=== PATIENT | female | born 1955 | race Caucasian/White ===

== ENCOUNTER 2021-07-10 12:04 | Inpatient (IN) | payer MEDICARE, BC ==
[2021-07-10] MEDS ORDERED: Sodium Chloride 0.9% 1,000 ML IV SCH (12:45)
[2021-07-10] MEDS ORDERED: Morphine 4 MG/ML VIAL IVPUSH STA (13:13)
[2021-07-10] MEDS ORDERED: cefTRIAXone 2 GM Vial IVPUSH STA (13:45)
[2021-07-10] MEDS ORDERED: Ondansetron 4 MG/2 ML SDV IVPUSH STA (13:45)
[2021-07-10] MEDS ORDERED: Iopamidol 755 Mg/ML 100 ML Bottle IV ONE (13:58)
--- NOTE | 2021-07-10 14:14 | EDM.PDOC ---
ED HPI GENERAL MEDICAL PROBLEM - General Chief Complaint: Lower Extremity Injury/Pain Stated Complaint: LEG PAIN Time Seen by Provider: 07/10/21 12:35 Source of Information: Reports: Patient History Limitations: Reports: No Limitations - History of Present Illness INITIAL COMMENTS - FREE TEXT/NARRATIVE: Patient is a 65 YO WF who presented to the ED because of right thigh pain and generalized body weakness. She had a total hip replacement surgery due to OA at [facility] on 07/02/21. 3 days after the surgery she had decreased appetite an has not been eating well since then. She also c/o generalized body weakness which is worse on the RLE. 4 days post op she had nausea but no vomiting or diarrhea. She had chills but afebrile. Today she noticed redness posterior to the incision site. - Related Data Allergies Allergy/AdvReac Type Severity Reaction Status Date / Time Penicillins Allergy Rash Verified 06/28/14 10:51 Home Meds: Home Meds Atenolol [Tenormin] 150 mg PO DAILY 06/16/13 [History] Bimatoprost [LUMIGAN 0.01% Ophth Soln] 1 drop EYEBOTH BEDTIME 06/16/13 [History] Carboxymethylcellulos/Glycerin [Refresh Optive] 1 drop EYELF BID PRN 06/16/13 [History] Insulin Lispro [Humalog Kwikpen U-100] 36 units SQ TIDM 06/16/13 [History] Losartan/Hydrochlorothiazide [Hyzaar 100-25] 1 tab PO DAILY 06/16/13 [History] Omeprazole [Prilosec] 40 mg PO DAILY 06/16/13 [History] cycloSPORINE [Restasis] 1 each EYEBOTH BID 06/16/13 [History] Alosetron HCl [Lotronex] 0.5 mg PO BID PRN 07/10/21 [History] Ascorbic Acid [Vitamin C with Pamela Hips] 500 mg PO DAILY 07/10/21 [History] Aspirin [Aspirin EC] 325 mg PO DAILY 07/10/21 [History] Carboxymethylcell/Hypromellose [GenTeal 0.25-0.3% Gel Drops] 1 drop EYEBOTH BEDTIME 07/10/21 [History] Cholecalciferol (Vitamin D3) [Vitamin D3] 1,000 unit PO DAILY 07/10/21 [History] Diltiazem [Diltiazem XR] 240 mg PO DAILY 07/10/21 [History] Dulaglutide [Trulicity] 3 mg SQ WE 07/10/21 [History] Gabapentin [Neurontin] 300 mg PO BID 07/10/21 [History] Insulin Degludec [Tresiba] 50 unit SQ BEDTIME 07/10/21 [History] Nystatin [Nyamyc] 1 applic TP BID PRN 07/10/21 [History] Rosuvastatin [Crestor] 5 mg PO BEDTIME 07/10/21 [History] Terbinafine [LamISIL AT 1% Crm] 1 applic BID PRN 07/10/21 [History] Zinc 25 mg PO DAILY 07/10/21 [History] metFORMIN [Glucophage] 500 mg PO 1800 07/10/21 [History] oxyCODONE 5 mg PO Q4H PRN 07/10/21 [History] traZODone 50 mg PO BEDTIME 07/10/21 [History] Acetaminophen [Acetaminophen ER] 650 mg PO Q8H PRN 07/11/21 [History] Aspirin [Halfprin] 81 mg PO BEDTIME 07/11/21 [History] Clobetasol [Clobetasol 0.05%] 1 applic TOP Q72H PRN 07/11/21 [History] Lutein 20 mg PO DAILY 07/11/21 [History] Multivitamins [Tab-A-Sherman] 1 tab PO DAILY 07/11/21 [History] estradioL [Estrace 0.01% Vaginal Crm] 1 g VAG WEEKLY PRN 07/11/21 [History] metFORMIN [Glucophage] 1,000 mg PO DAILY 07/11/21 [History] Review of Systems - Review of Systems Review Of Systems: See Below Constitutional: Reports: Chills, Weakness Eyes: Reports: No Symptoms Ears: Reports: No Symptoms Nose: Reports: No Symptoms Mouth/Throat: Reports: No Symptoms Respiratory: Reports: No Symptoms Cardiovascular: Reports: No Symptoms GI/Abdominal: Reports: No Symptoms Genitourinary: Reports: No Symptoms Musculoskeletal: Reports: No Symptoms Skin: Reports: Erythema Neurological: Reports: No Symptoms Psychiatric: Reports: No Symptoms ED EXAM, GENERAL - Physical Exam Exam: See Below Exam Limited By: No Limitations General Appearance: Alert, No Apparent Distress Eye Exam: Bilateral Eye: PERRL Nose: Normal Inspection, Normal Mucosa, No Blood Throat/Mouth: Normal Inspection, Normal Lips, Normal Teeth, Normal Gums Head: Atraumatic, Normocephalic Neck: Normal Inspection, Supple, Non-Tender, Full Range of Motion Respiratory/Chest: No Respiratory Distress, Lungs Clear, Normal Breath Sounds, No Accessory Muscle Use, Chest Non-Tender Cardiovascular: Normal Peripheral Pulses, Regular Rate, Rhythm, No Edema, No Gallop, No JVD, No Murmur, No Rub GI/Abdominal: Normal Bowel Sounds, Soft, Non-Tender, No Organomegaly, No Distention, No Abnormal Bruit, No Mass Back Exam: Normal Inspection, Full Range of Motion Extremities: Normal Inspection, Normal Range of Motion, Non-Tender, No Pedal Edema, Normal Capillary Refill Neurological: Alert, Oriented, CN II-XII Intact Psychiatric: Normal Affect Skin Exam: Erythema (posterior to the incision site) #1 Interpretation EKG Date: 07/10/21 Time: 12:42 Rhythm: NSR Rate (Beats/Min): 72 [place]: Normal P-Wave: Present QRS: Normal ST-T: Normal QT: Normal TX/PQ Interval: 194 Comparison: NA - No Prior EKG EKG Interpretation Comments: NSR LAE LVH Course - Vital Signs Text/Narrative:: Lab/EKG/CXR/CTA-chest result was reviewed and discussed with patient NS 500 ml/hr X 1 L Zofran 4 mg IV x1 Morphine 4 mg IV x1 Rocephin 1 gm IV x1 Last Recorded V/S: Last Vital Signs Temp 37.7 C 07/10/21 18:01 Pulse 78 07/10/21 18:01 Resp 16 07/10/21 18:01 BP 95/55 L 07/10/21 18:01 Pulse Ox 97 07/10/21 18:01 - Orders/Labs/Meds Orders: Active Orders 24 hr Category Date Time Status Patient Status [ADT] Routine ADT 07/10/21 16:31 Active Blood Glucose Check, Bedside [RC] 07,11,17,21 Care 07/10/21 16:31 Active Oxygen Therapy [RC] PRN Care 07/10/21 16:31 Active Pulse Oximetry [RC] PRN Care 07/10/21 16:34 Active Up With Assistance [RC] ASDIRECTED Care 07/10/21 16:31 Active VTE/DVT Education [RC] Per Unit Routine Care 07/10/21 16:31 Active Vital Signs [RC] Q4H Care 07/10/21 16:31 Active Heart Healthy Diet [DIET] Diet 07/10/21 Dinner Ordered CULTURE BLOOD [BC] Urgent Lab 07/10/21 14:35 Received CULTURE BLOOD [BC] Urgent Lab 07/10/21 16:00 Received Acetaminophen/oxyCODONE [Percocet 325-5 MG] Med 07/10/21 16:31 Active 1 tab PO Q4H PRN Acetaminophen/oxyCODONE [Percocet 325-5 MG] Med 07/10/21 16:59 Active 2 tab PO Q4H PRN Docusate Sodium/Sennosides [Senna Plus] Med 07/10/21 16:31 Active 1 tab PO BID PRN Enoxaparin [Lovenox] Med 07/10/21 21:00 Active 40 mg SUBCUT Q24H Morphine Med 07/10/21 16:31 Active 4 mg IVPUSH Q2H PRN Ondansetron [Zofran] Med 07/10/21 16:31 Active 4 mg IVPUSH Q4H PRN Sodium Chloride 0.9% [Saline Flush] Med 07/10/21 12:26 Active 10 ml FLUSH ASDIRECTED PRN cefTRIAXone [Rocephin] Med 07/10/21 14:00 Active 1 gm IVPUSH Q24H Blood Culture x2 Reflex Set [OM.PC] Urgent Oth 07/10/21 12:26 Ordered Isolation [COMM] Routine Oth 07/10/21 14:00 Ordered Saline Lock Insert [OM.PC] Routine Oth 07/10/21 12:26 Ordered Sequential Compression Device [OM.PC] Per Unit Routine Oth 07/10/21 16:34 Ordered Resuscitation Status Routine Resus Stat 07/10/21 16:31 Ordered EKG 12 Lead [EK] Routine Ther 07/10/21 12:29 Ordered Medication Orders Acetaminophen (Acetaminophen 650 Mg Tab.Er) 650 mg PO Q8H PRN PRN Reason: Pain Ascorbic Acid (Ascorbic Acid 500 Mg Tab) 500 mg PO DAILY [facility] Last Admin: 07/11/21 10:15 Dose: 500 mg Documented by: INGRID Aspirin (Aspirin 325 Mg Tab.Ec) 325 mg PO DAILY [facility] Last Admin: 07/11/21 10:15 Dose: 325 mg Documented by: INGRID Carboxymethylcellulose (Carboxymethylcellulose 0.5%/Glycerin 0.9% Ophth Soln 15 Ml Bottle) 0 ml EYELF BID [facility] Last Admin: 07/11/21 08:43 Dose: 1 drop Documented by: Admin: 07/10/21 22:21 Dose: 1 drop Documented by: SCOTT Ceftriaxone Sodium (Ceftriaxone 1 Gm Vial) 1 gm IVPUSH Q24H [facility] Last Admin: 07/10/21 22:17 Dose: Not Given Documented by: IVAN Cholecalciferol (Cholecalciferol (Vitamin D3) 25 Mcg Tab) 25 mcg PO DAILY [facility] Last Admin: 07/11/21 10:16 Dose: 25 mcg Documented by: INGRID Dextrose/Water (50% Dextrose In Water 50 Ml Syringe) 50 ml IVPUSH ASDIRECTED PRN PRN Reason: Hypoglycemia Enoxaparin Sodium (Enoxaparin 40 Mg/0.4 Ml Syringe) 40 mg SUBCUT Q24H [facility] Last Admin: 07/10/21 21:30 Dose: 40 mg Documented by: SCOTT Gabapentin (Gabapentin 300 Mg Cap) 300 mg PO BID [facility] Last Admin: 07/11/21 10:18 Dose: 300 mg Documented by: INGRID Glucagon (Glucagon,Human Recombinant 1 Mg Vial) 1 mg IM ASDIRECTED PRN PRN Reason: Hypoglycemia Sodium Chloride (Normal Saline) 1,000 mls @ 150 mls/hr IV ASDIRECTED [facility] Last Admin: 07/11/21 09:33 Dose: 150 mls/hr Documented by: Infusion: 07/11/21 09:33 Dose: 150 mls/hr Documented by: Admin: 07/11/21 05:58 Dose: 150 mls/hr Documented by: Infusion: 07/11/21 05:53 Dose: 150 mls/hr Documented by: Admin: 07/10/21 23:12 Dose: 150 mls/hr Documented by: Infusion: 07/10/21 22:21 Dose: 150 mls/hr Documented by: Admin: 07/10/21 15:40 Dose: 150 mls/hr Documented by: IVAN Sodium Chloride (Normal Saline) 250 mls @ 100 mls/hr IV ASDIRECTED [facility] Vancomycin HCl (Vancomycin 1.5 Gm/300 Ml) 300 mls @ 200 mls/hr IV Q12H [facility]ERVAT Insulin Human Lispro (Insulin Lispro 100 Unit/Ml 3 Ml Kwikpen) 0 unit SUBCUT TIDMEALS [facility]; Protocol Last Admin: 07/11/21 11:37 Dose: 4 units Documented by: INGRID Cosigned by: JD Latanoprost (Latanoprost 0.005% Ophth Soln 2.5 Ml Bottle) 0 ml EYEBOTH BEDTIME [facility] Last Admin: 07/10/21 21:30 Dose: 1 drop Documented by: SCOTT Lutein (Lutein 10 Mg Tab) 20 mg PO DAILY [facility] Last Admin: 07/11/21 10:15 Dose: 20 mg Documented by: INGRID Metformin HCl (Metformin 1,000 Mg Tab) 1,000 mg PO WITHBREAKFAST [facility] Metformin HCl (Metformin 500 Mg Tab) 500 mg PO WITHDINNER [facility] Morphine Sulfate (Morphine 4 Mg/Ml Vial) 4 mg IVPUSH Q2H PRN PRN Reason: Pain Multivitamins/Minerals/Vitamin C (Multivitamin Tab) 1 tab PO DAILY [facility] Last Admin: 07/11/21 10:15 Dose: 1 tab Documented by: INGRID Non-Formulary Medication (Insulin Degludec [Tresiba]) 50 unit SQ BEDTIME [facility] Nystatin (Nystatin Topical Powder 15 Gm Bottle) 0 gm TOP BID PRN PRN Reason: Rash Ondansetron HCl (Ondansetron 4 Mg/2 Ml Sdv) 4 mg IVPUSH Q4H PRN PRN Reason: Nausea/Vomiting Oxycodone/Acetaminophen (Acetaminophen/Oxycodone 325-5 Mg Tab) 1 tab PO Q4H PRN PRN Reason: Pain (moderate 4-6) Last Admin: 07/11/21 06:03 Dose: 1 tab Documented by: SCOTT Oxycodone/Acetaminophen (Acetaminophen/Oxycodone 325-5 Mg Tab) 2 tab PO Q4H PRN PRN Reason: SEVERE PAIN Last Admin: 07/10/21 21:55 Dose: 2 tab Documented by: SCOTT Pantoprazole Sodium (Pantoprazole 40 Mg Tab.Cr) 40 mg PO ACBREAKFAST [facility] Last Admin: 07/11/21 06:55 Dose: 40 mg Documented by: BOSHCAT Rosuvastatin Calcium (Rosuvastatin 10 Mg Tab) 5 mg PO BEDTIME [facility] Senna/Docusate Sodium (Docusate Sodium/Sennosides 50-8.6 Mg Tab) 1 tab PO BID PRN PRN Reason: Constipation Sodium Chloride (Sodium Chloride 0.9% 10 Ml Syringe) 10 ml FLUSH ASDIRECTED PRN PRN Reason: Keep Vein Open Trazodone HCl (Trazodone 50 Mg Tab) 50 mg PO BEDTIME [facility] Vancomycin HCl (Pharmacy To Dose - Vancomycin) 1 dose .XX ASDIRECTED [facility] Labs: Laboratory Tests 07/10/21 07/10/21 07/10/21 Range/Units 12:30 12:30 12:30 WBC 15.3 H (3.0-10.3) x10-3/uL RBC 2.92 L (3.60-5.20) x10(6)uL Hgb 8.6 L (11.4-15.5) g/dL Hct 26.0 L (34.2-48.2) % MCV 89.0 (76.7-100.5) fL MCH 29.3 (23.9-33.9) pg MCHC 33.0 (31.9-34.8) g/dL RDW 12.7 (12.3-16.5) % Plt Count 584 H (151-488) x10(3)uL MPV 8.0 (7.1-12.4) fL Neut % (Auto) 86.7 H (30.8-76.2) % Lymph % (Auto) 6.7 L (18.4-52.1) % Harrison % (Auto) 5.6 (4.4-15.7) % Eos % (Auto) 0.9 (0.6-8.1) % Baso % (Auto) 0.1 L (0.2-1.5) % Neut # (Auto) 13.2 H (1.5-6.3) x10-3/uL Lymph # (Auto) 1.0 (1.0-4.4) x10-3/uL Harrison # (Auto) 0.9 (0.3-1.0) x10-3/uL Eos # (Auto) 0.1 (0.0-0.8) x10-3/uL Baso # (Auto) 0.0 (0.0-0.1) x10-3/uL D-Dimer, Quantitative 2.41 H (0.0-0.59) mg/LFEU Sodium 128 L (135-145) mmol/L Potassium 3.3 L (3.5-5.3) mmol/L Chloride 90 L (100-110) mmol/L Carbon Dioxide 32 (21-32) mmol/L BUN 20 H (7-18) mg/dL Creatinine 1.2 H (0.55-1.02) mg/dL Est Cr Clr Drug Dosing TNP Estimated GFR (MDRD) 45 L (>60) BUN/Creatinine Ratio 16.7 (9-20) Glucose 278 H (80-116) mg/dL Lactic Acid (0.4-2.0) mmol/L Calcium 8.9 (8.6-10.2) mg/dL Total Bilirubin 0.9 (0.1-1.3) mg/dL AST 23 (5-25) IU/L ALT 21 (12-36) U/L Alkaline Phosphatase 102 (56-112) IU/L C-Reactive Protein (0.5-0.9) mg/dL Total Protein 6.0 (6.0-8.0) g/dL Albumin 2.0 L (3.2-4.6) g/dL Globulin 4.0 g/dL Albumin/Globulin Ratio 0.5 Urine Color (YELLOW) Urine Appearance (CLEAR) Urine pH (5.0-6.5) Ur Specific [place] (1.010-1.025) Urine Protein (NEGATIVE) mg/dL Urine Glucose (UA) (NORMAL) mg/dL Urine Ketones (NEGATIVE) mg/dL Urine Occult Blood (NEGATIVE) Urine Nitrite (NEGATIVE) Urine Bilirubin (NEGATIVE) Urine Urobilinogen (NEGATIVE) mg/dL Ur Leukocyte Esterase (NEGATIVE) Urine RBC (0-5) Urine WBC (0-5) Ur Squamous Epith Cells (NS,R,O) Urine Bacteria (NS) SARS-CoV-2 RNA (SEBASTIAN) (NEGATIVE) 07/10/21 07/10/21 07/10/21 Range/Units 12:30 12:30 12:31 WBC (3.0-10.3) x10-3/uL RBC (3.60-5.20) x10(6)uL Hgb (11.4-15.5) g/dL Hct (34.2-48.2) % MCV (76.7-100.5) fL MCH (23.9-33.9) pg MCHC (31.9-34.8) g/dL RDW (12.3-16.5) % Plt Count (151-488) x10(3)uL MPV (7.1-12.4) fL Neut % (Auto) (30.8-76.2) % Lymph % (Auto) (18.4-52.1) % Harrison % (Auto) (4.4-15.7) % Eos % (Auto) (0.6-8.1) % Baso % (Auto) (0.2-1.5) % Neut # (Auto) (1.5-6.3) x10-3/uL Lymph # (Auto) (1.0-4.4) x10-3/uL Harrison # (Auto) (0.3-1.0) x10-3/uL Eos # (Auto) (0.0-0.8) x10-3/uL Baso # (Auto) (0.0-0.1) x10-3/uL D-Dimer, Quantitative (0.0-0.59) mg/LFEU Sodium (135-145) mmol/L Potassium (3.5-5.3) mmol/L Chloride (100-110) mmol/L Carbon Dioxide (21-32) mmol/L BUN (7-18) mg/dL Creatinine (0.55-1.02) mg/dL Est Cr Clr Drug Dosing Estimated GFR (MDRD) (>60) BUN/Creatinine Ratio (9-20) Glucose (80-116) mg/dL Lactic Acid 2.6 H* (0.4-2.0) mmol/L Calcium (8.6-10.2) mg/dL Total Bilirubin (0.1-1.3) mg/dL AST (5-25) IU/L ALT (12-36) U/L Alkaline Phosphatase (56-112) IU/L C-Reactive Protein 24.8 H* (0.5-0.9) mg/dL Total Protein (6.0-8.0) g/dL Albumin (3.2-4.6) g/dL Globulin g/dL Albumin/Globulin Ratio Urine Color (YELLOW) Urine Appearance (CLEAR) Urine pH (5.0-6.5) Ur Specific [place] (1.010-1.025) Urine Protein (NEGATIVE) mg/dL Urine Glucose (UA) (NORMAL) mg/dL Urine Ketones (NEGATIVE) mg/dL Urine Occult Blood (NEGATIVE) Urine Nitrite (NEGATIVE) Urine Bilirubin (NEGATIVE) Urine Urobilinogen (NEGATIVE) mg/dL Ur Leukocyte Esterase (NEGATIVE) Urine RBC (0-5) Urine WBC (0-5) Ur Squamous Epith Cells (NS,R,O) Urine Bacteria (NS) SARS-CoV-2 RNA (SEBASTIAN) Negative (NEGATIVE) 07/10/21 07/10/21 Range/Units 15:00 16:00 WBC (3.0-10.3) x10-3/uL RBC (3.60-5.20) x10(6)uL Hgb (11.4-15.5) g/dL Hct (34.2-48.2) % MCV (76.7-100.5) fL MCH (23.9-33.9) pg MCHC (31.9-34.8) g/dL RDW (12.3-16.5) % Plt Count (151-488) x10(3)uL MPV (7.1-12.4) fL Neut % (Auto) (30.8-76.2) % Lymph % (Auto) (18.4-52.1) % [place] % (Auto) (4.4-15.7) % Eos % (Auto) (0.6-8.1) % Baso % (Auto) (0.2-1.5) % Neut # (Auto) (1.5-6.3) x10-3/uL Lymph # (Auto) (1.0-4.4) x10-3/uL Harrison # (Auto) (0.3-1.0) x10-3/uL Eos # (Auto) (0.0-0.8) x10-3/uL Baso # (Auto) (0.0-0.1) x10-3/uL D-Dimer, Quantitative (0.0-0.59) mg/LFEU Sodium (135-145) mmol/L Potassium (3.5-5.3) mmol/L Chloride (100-110) mmol/L Carbon Dioxide (21-32) mmol/L BUN (7-18) mg/dL Creatinine (0.55-1.02) mg/dL Est Cr Clr Drug Dosing Estimated GFR (MDRD) (>60) BUN/Creatinine Ratio (9-20) Glucose (80-116) mg/dL Lactic Acid 1.6 (0.4-2.0) mmol/L Calcium (8.6-10.2) mg/dL Total Bilirubin (0.1-1.3) mg/dL AST (5-25) IU/L ALT (12-36) U/L Alkaline Phosphatase (56-112) IU/L C-Reactive Protein (0.5-0.9) mg/dL Total Protein (6.0-8.0) g/dL Albumin (3.2-4.6) g/dL Globulin g/dL Albumin/Globulin Ratio Urine Color Yellow (YELLOW) Urine Appearance Slightly cloudy (CLEAR) Urine pH 5.0 (5.0-6.5) Ur Specific [place] 1.010 (1.010-1.025) Urine Protein Negative (NEGATIVE) mg/dL Urine Glucose (UA) Normal (NORMAL) mg/dL Urine Ketones Negative (NEGATIVE) mg/dL Urine Occult Blood Negative (NEGATIVE) Urine Nitrite Negative (NEGATIVE) Urine Bilirubin Negative (NEGATIVE) Urine Urobilinogen 1 H (NEGATIVE) mg/dL Ur Leukocyte Esterase Negative (NEGATIVE) Urine RBC 0-5 (0-5) Urine WBC 0-5 (0-5) Ur Squamous Epith Cells Moderate H (NS,R,O) Urine Bacteria Moderate H (NS) SARS-CoV-2 RNA (SEBASTIAN) (NEGATIVE) Meds: Medications Generic Name Dose Route Start Last Admin Trade Name Freq PRN Reason Stop Dose Admin Acetaminophen 650 mg 07/11/21 08:58 Acetaminophen 650 Mg Tab.Er PO Q8H PRN Pain Ascorbic Acid 500 mg 07/11/21 09:00 07/11/21 10:15 Ascorbic Acid 500 Mg Tab PO 500 mg DAILY MERVAT Administration Aspirin 325 mg 07/11/21 09:00 07/11/21 10:15 Aspirin 325 Mg Tab.Ec PO 325 mg DAILY MERVAT Administration Carboxymethylcellulose 0 ml 07/10/21 21:00 07/11/21 08:43 Carboxymethylcellulose 0.5%/Glycerin 0.9% Ophth Soln 15 Ml Bottle EYELF 1 d rop BID MERVAT Administration Ceftriaxone Sodium 1 gm 07/10/21 14:00 07/10/21 22:17 Ceftriaxone 1 Gm Vial IVPUSH Not Given Q24H MERVAT Cholecalciferol 25 mcg 07/11/21 09:30 07/11/21 10:16 Cholecalciferol (Vitamin D3) 25 Mcg Tab PO 25 mcg DAILY MERVAT Administration Dextrose/Water 50 ml 07/10/21 17:26 50% Dextrose In Water 50 Ml Syringe IVPUSH ASDIRECTED PRN Hypoglycemia Enoxaparin Sodium 40 mg 07/10/21 21:00 07/10/21 21:30 Enoxaparin 40 Mg/0.4 Ml Syringe SUBCUT 40 mg Q24H MERVAT Administration Gabapentin 300 mg 07/11/21 09:00 07/11/21 10:18 Gabapentin 300 Mg Cap PO 300 mg BID MERVAT Administration Glucagon 1 mg 07/10/21 17:26 Glucagon,Human Recombinant 1 Mg Vial IM ASDIRECTED PRN Hypoglycemia Sodium Chloride 1,000 mls @ 150 mls/hr 07/10/21 22:15 07/11/21 09:33 Normal Saline IV 150 mls/hr ASDIRECTED MERVAT Administration Sodium Chloride 250 mls @ 100 mls/hr 07/11/21 09:00 Normal Saline IV ASDIRECTED MERVAT Vancomycin HCl 300 mls @ 200 mls/hr 07/11/21 21:00 Vancomycin 1.5 Gm/300 Ml IV Q12H MERVAT Insulin Human Lispro 0 unit 07/11/21 12:00 07/11/21 11:37 Insulin Lispro 100 Unit/Ml 3 Ml Kwikpen SUBCUT 4 units TIDMEALS MERVAT Administration Protocol Latanoprost 0 ml 07/10/21 21:00 07/10/21 21:30 Latanoprost 0.005% Ophth Soln 2.5 Ml Bottle EYEBOTH 1 drop BEDTIME MERVAT Administration Lutein 20 mg 07/11/21 09:30 07/11/21 10:15 Lutein 10 Mg Tab PO 20 mg DAILY MERVAT Administration Metformin HCl 1,000 mg 07/12/21 08:00 Metformin 1,000 Mg Tab PO WITHBREAKFAST MERVAT Metformin HCl 500 mg 07/13/21 18:00 Metformin 500 Mg Tab PO WITHDINNER [facility] Morphine Sulfate 4 mg 07/10/21 16:31 Morphine 4 Mg/Ml Vial IVPUSH Q2H PRN Pain Multivitamins/Minerals/Vitamin C 1 tab 07/11/21 09:00 07/11/21 10:15 Multivitamin Tab PO 1 tab DAILY MERVAT Administration Non-Formulary Medication 50 unit 07/11/21 21:00 Insulin Degludec [Tresiba] SQ BEDTIME [facility] [place] Nystatin 0 gm 07/11/21 08:58 Nystatin Topical Powder 15 Gm Bottle TOP BID PRN Rash Ondansetron HCl 4 mg 07/10/21 16:31 Ondansetron 4 Mg/2 Ml Sdv IVPUSH Q4H PRN Nausea/Vomiting Oxycodone/Acetaminophen 1 tab 07/10/21 16:31 07/11/21 06:03 Acetaminophen/Oxycodone 325-5 Mg Tab PO 1 tab Q4H PRN Administration Pain (moderate 4-6) Oxycodone/Acetaminophen 2 tab 07/10/21 16:59 07/10/21 21:55 Acetaminophen/Oxycodone 325-5 Mg Tab PO 2 tab Q4H PRN Administration SEVERE PAIN Pantoprazole Sodium 40 mg 07/11/21 07:30 07/11/21 06:55 Pantoprazole 40 Mg Tab.Cr PO 40 mg ACBREAKFAST MERVAT Administration Rosuvastatin Calcium 5 mg 07/11/21 21:00 Rosuvastatin 10 Mg Tab PO BEDTIME MERVAT Senna/Docusate Sodium 1 tab 07/10/21 16:31 Docusate Sodium/Sennosides 50-8.6 Mg Tab PO BID PRN Constipation Sodium Chloride 10 ml 07/10/21 12:26 Sodium Chloride 0.9% 10 Ml Syringe FLUSH ASDIRECTED PRN Keep Vein Open Trazodone HCl 50 mg 07/11/21 21:00 Trazodone 50 Mg Tab PO BEDTIME [facility] Vancomycin HCl 1 dose 07/11/21 09:15 Pharmacy To Dose - Vancomycin .XX ASDIRECTED MERVAT Discontinued Medications Generic Name Dose Route Start Last Admin Trade Name Freq PRN Reason Stop Dose Admin Alprazolam 0.5 mg 07/10/21 17:26 Alprazolam 0.5 Mg Tab PO DAILY PRN Anxiety Ceftriaxone Sodium 2 gm 07/10/21 13:45 07/10/21 14:30 Ceftriaxone 2 Gm Vial IVPUSH 07/10/21 13:46 1 gm NOW STA Administration Dextrose/Water 50 ml 07/10/21 21:31 50% Dextrose In Water 50 Ml Syringe IVPUSH ASDIRECTED PRN Hypoglycemia Flecainide Acetate 75 mg 07/10/21 21:00 07/10/21 22:24 Flecainide 100 Mg Tab PO Not Given BID MERVAT Glucagon 1 mg 07/10/21 21:31 Glucagon,Human Recombinant 1 Mg Vial IM ASDIRECTED PRN Hypoglycemia Sodium Chloride 1,000 mls @ 500 mls/hr 07/10/21 12:45 07/10/21 13:10 Normal Saline IV 500 mls/hr ASDIRECTED MERVAT Administration Vancomycin HCl 2 gm/ Premix 400 mls @ 200 mls/hr 07/11/21 09:00 07/11/21 10:12 IV 07/11/21 10:59 200 mls/hr ONETIME ONE Administration Insulin Human Lispro 7 unit 07/10/21 18:00 07/11/21 08:38 Insulin Lispro 100 Unit/Ml 3 Ml Kwikpen SUBCUT 7 units TIDMEALS MERVAT Administration Insulin Human Lispro 10 unit 07/10/21 21:45 07/10/21 21:45 Insulin Lispro 100 Unit/Ml 3 Ml Kwikpen SUBCUT 07/10/21 21:46 10 units ONETIME ONE Administration Insulin Human Lispro 10 unit 07/10/21 23:30 07/10/21 23:35 Insulin Lispro 100 Unit/Ml 3 Ml Kwikpen SUBCUT 07/10/21 23:31 10 units ONETIME ONE Administration Iopamidol 100 ml 07/10/21 13:58 07/10/21 14:51 Iopamidol 755 Mg/Ml 100 Ml Bottle IV 07/10/21 13:59 90 ml . DIRECTED ONE Administration Meloxicam 15 mg 07/11/21 09:00 Meloxicam 15 Mg Tab PO DAILY [facility] [place] Morphine Sulfate 4 mg 07/10/21 13:13 07/10/21 13:16 Morphine 4 Mg/Ml Vial IVPUSH 07/10/21 13:14 4 mg NOW STA Administration Ondansetron HCl 4 mg 07/10/21 13:45 07/10/21 14:28 Ondansetron 4 Mg/2 Ml Sdv IVPUSH 07/10/21 13:46 4 mg NOW STA Administration Simvastatin 10 mg 07/10/21 21:00 07/10/21 21:48 Simvastatin 10 Mg Tab PO 10 mg BEDTIME MERVAT Administration Departure - Departure Time of Disposition: 14:00 Disposition: Admitted As Inpatient 68 Condition: Good Clinical Impression: Cellulitis, Anemia, Hypokalemia, Hyponatremia History of total hip replacement Qualifiers: Laterality: right Qualified Code(s): Z96.641 - Presence of right artificial hip joint - Discharge Information - My Orders Last 24 Hours: My Active Orders 07/10/21 12:26 Sodium Chloride 0.9% [Saline Flush] 10 ml FLUSH ASDIRECTED PRN Blood Culture x2 Reflex Set [OM.PC] Urgent Saline Lock Insert [OM.PC] Routine 07/10/21 12:29 EKG 12 Lead [EK] Routine 07/10/21 14:00 cefTRIAXone [Rocephin] 1 gm IVPUSH Q24H Isolation [COMM] Routine 07/10/21 14:35 CULTURE BLOOD [BC] Urgent 07/10/21 16:00 CULTURE BLOOD [BC] Urgent 07/10/21 Dinner Heart Healthy Diet [DIET] 07/10/21 16:31 Patient Status [ADT] Routine Blood Glucose Check, Bedside [RC] 07,11,17,21 Oxygen Therapy [RC] PRN Up With Assistance [RC] ASDIRECTED VTE/DVT Education [RC] Per Unit Routine Vital Signs [RC] Q4H Acetaminophen/oxyCODONE [Percocet 325-5 MG] 1 tab PO Q4H PRN Docusate Sodium/Sennosides [Senna Plus] 1 tab PO BID PRN Morphine 4 mg IVPUSH Q2H PRN Ondansetron [Zofran] 4 mg IVPUSH Q4H PRN Resuscitation Status Routine 07/10/21 16:34 Pulse Oximetry [RC] PRN Sequential Compression Device [OM.PC] Per Unit Routine 07/10/21 21:00 Enoxaparin [Lovenox] 40 mg SUBCUT Q24H - Assessment/Plan Last 24 Hours: My Active Orders 07/10/21 12:26 Sodium Chloride 0.9% [Saline Flush] 10 ml FLUSH ASDIRECTED PRN Blood Culture x2 Reflex Set [OM.PC] Urgent Saline Lock Insert [OM.PC] Routine 07/10/21 12:29 EKG 12 Lead [EK] Routine 07/10/21 14:00 cefTRIAXone [Rocephin] 1 gm IVPUSH Q24H Isolation [COMM] Routine 07/10/21 14:35 CULTURE BLOOD [BC] Urgent 07/10/21 16:00 CULTURE BLOOD [BC] Urgent 07/10/21 Dinner Heart Healthy Diet [DIET] 07/10/21 16:31 Patient Status [ADT] Routine Blood Glucose Check, Bedside [RC] 07,11,, Oxygen Therapy [RC] PRN Up With Assistance [RC] ASDIRECTED VTE/DVT Education [RC] Per Unit Routine Vital Signs [RC] Q4H Acetaminophen/oxyCODONE [Percocet 325-5 MG] 1 tab PO Q4H PRN Docusate Sodium/Sennosides [Senna Plus] 1 tab PO BID PRN Morphine 4 mg IVPUSH Q2H PRN Ondansetron [Zofran] 4 mg IVPUSH Q4H PRN Resuscitation Status Routine 07/10/21 16:34 Pulse Oximetry [RC] PRN Sequential Compression Device [OM.PC] Per Unit Routine 07/10/21 21:00 Enoxaparin [Lovenox] 40 mg SUBCUT Q24H
[2021-07-10] MEDS: Sodium Chloride 0.9% 1,000 ML IV SCH ×2 (15:40→23:12)
--- NOTE | 2021-07-10 15:50 | CT ---
INDICATION: Elevated D-dimer 2.41/post total hip replacement 07/02/21. CT-ANGIOGRAPHY OF THE CHEST WITH CONTRAST: Spiral 1.25 mm axial sections were obtained through the chest with 90 mL Isovue-[id number] at 4 mL/second with sagittal and coronal reconstructions and axial reconstructions, 07/10/21 - chest x-ray comparison of 07/02/21. TOTAL EXAM DLP: 899.38 mGy/cm. Lower neck was unremarkable. No mediastinal mass or significant mediastinal lymphadenopathy. Heart did not appear grossly enlarged, but did appear to be at the upper limits of normal in size. No pericardial effusion was seen. The upper abdomen included on the study showed no gross abnormality. The gallbladder is absent, compatible with cholecystectomy with clips at the cystic duct. An active infiltrate or effusion, or nodule or mass, was not identified. Major vessels were intact. No evidence of a pulmonary artery embolism was identified. IMPRESSION: 1. No PE identified. 2. No acute process suggested. 3. 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 4. 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 Report was called to Dr. Silva at 1517 hours. [facility]
[2021-07-10] MEDS ORDERED: Morphine 4 MG/ML VIAL IVPUSH PRN (16:31)
[2021-07-10] MEDS ORDERED: Ondansetron 4 MG/2 ML SDV IVPUSH PRN (16:31)
[2021-07-10] MEDS ORDERED: Acetaminophen/oxyCODONE 325-5 MG Tab PO PRN (16:59)
[2021-07-10] MEDS ORDERED: ALPRAZolam 0.5 MG Tab PO PRN (17:26)
[2021-07-10] MEDS ORDERED: Glucagon,Human Recombinant 1 MG Vial IM PRN ×3 (17:26→23:18)
[2021-07-10] MEDS ORDERED: 50% Dextrose in Water 50 ML Syringe IVPUSH PRN ×3 (17:26→23:18)
[2021-07-10] MEDS ORDERED: Insulin Lispro 100 Unit/ML 3 ML KwikPen SUBCUT SCH (18:00)
--- NOTE | 2021-07-10 18:20 | CR ---
INDICATION: Weakness. CHEST, ONE VIEW: AP upright portable view of the chest 07/10/21 - no comparisons. The heart did not appear enlarged. Mediastinum is unremarkable. Evidence of exogenous obesity is noted. Somewhat heavy markings at the lung bases likely are fibrotic in nature without a definite active infiltrate or effusion. However, it is difficult to entirely exclude minimal patchy bronchopneumonia at the lung bases. IMPRESSION: No definite acute process. However, it is difficult to exclude minimal patchy bronchopneumonia at the lung bases. MTDD
[2021-07-10] MEDS ORDERED: cycloSPORINE Ophth Drops U/D Box of 30 SCH (21:00)
[2021-07-10] MEDS ORDERED: Non-Formulary Medication 1 Each (Bimatoprost [Lumigan 0.01% Ophth Soln] 2.5 ML Bottle) EYEBOTH SCH (21:00)
[2021-07-10] MEDS ORDERED: Flecainide 100 MG Tab PO SCH (21:00)
[2021-07-10] MEDS ORDERED: Simvastatin 10 MG Tab PO SCH (21:00)
[2021-07-10] MEDS: Enoxaparin 40 MG/0.4 ML Syringe SUBCUT SCH (21:30)
[2021-07-10] MEDS: Latanoprost 0.005% Ophth Soln 2.5 ML Bottle EYEBOTH SCH (21:30)
[2021-07-10] MEDS ORDERED: Insulin Lispro 100 Unit/ML 3 ML KwikPen SUBCUT ONE ×3 (21:39→23:30)
[2021-07-10] MEDS: cefTRIAXone 1 GM Vial IVPUSH SCH (22:17)
[2021-07-10] MEDS: Carboxymethylcellulose 0.5%/Glycerin 0.9% Ophth Soln 15 ML Bottle EYELF SCH (22:21)
[2021-07-11] MEDS: Sodium Chloride 0.9% 1,000 ML IV SCH ×2 (05:58→09:33)
[2021-07-11] MEDS: Acetaminophen/oxyCODONE 325-5 MG Tab PO PRN ×3 (06:03→20:45)
[2021-07-11] MEDS: Pantoprazole 40 MG Tab.CR PO SCH (06:55)
[2021-07-11] MEDS ORDERED: metFORMIN 500 MG Tab PO SCH ×3 (08:00→18:00)
[2021-07-11] MEDS: Carboxymethylcellulose 0.5%/Glycerin 0.9% Ophth Soln 15 ML Bottle EYELF SCH ×2 (08:43→20:22)
[2021-07-11] MEDS ORDERED: Clobetasol 0.05% Crm 15 GM Tube TOP PRN (08:58)
[2021-07-11] MEDS ORDERED: ALOSETRON HCL 0.5 MG PO PRN (08:58)
[2021-07-11] MEDS ORDERED: Terbinafine 1% Crm 30 GM Tube PRN (08:58)
[2021-07-11] MEDS ORDERED: oxyCODONE 5 MG Tab PO PRN (08:58)
[2021-07-11] MEDS ORDERED: Nystatin Topical Powder 15 GM Bottle TOP PRN (08:58)
[2021-07-11] MEDS ORDERED: Acetaminophen 650 MG Tab.ER PO PRN (08:58)
[2021-07-11] MEDS ORDERED: Non-Formulary Medication 1 Each (Estradiol [Estrace 0.01% Vaginal Crm] 42.5 GM Tube) VAG PRN (08:58)
[2021-07-11] MEDS ORDERED: Sodium Chloride 0.9% 250 ML IV SCH (09:00)
[2021-07-11] MEDS ORDERED: OMEPRAZOLE 40 MG PO SCH (09:00)
[2021-07-11] MEDS ORDERED: VANCOmycin 2 GM/400 ML 2 GM in Premix Bag 1 BAG IV ONE (09:00)
[2021-07-11] MEDS ORDERED: Non-Formulary Medication 1 Each (Zinc [Zinc] 50 MG Tablet) PO SCH (09:00)
--- NOTE | 2021-07-11 09:08 | PCM.HP.2 ---
H&P History of Present Illness - General Date of Service: 07/11/21 Admit Problem/Dx: Admission Diagnosis/Problem Admission Diagnosis/Problem Cellulitis Source of Information: Patient, Provider History Limitations: Reports: No Limitations - History of Present Illness Initial Comments - Free Text/Narative: This is a 65-year-old female admitted through the ER last night because of possible cellulitis. She had right total hip replacement on the , but had been complaining of generalized weakness decreased appetite since. Last few days, she noted redness,increased drainage and pain in the right hip. She also endorsed swelling that right leg. She did not have any cough or systemic symptoms. She stated that during the postoperative course, blood pressure was low on the sugars were uncontrolled. She has obesity, hypertension, and uncontrolled type 2 diabetes. The surgery was performed by Dr. Hernandez [facility]. R hip Pain Score (Numeric/FACES): 4 - Related Data Allergies/Adverse Reactions: Allergies Allergy/AdvReac Type Severity Reaction Status Date / Time Penicillins Allergy Rash Verified 06/28/14 10:51 Home Medications: Home Meds Atenolol [Tenormin] 150 mg PO DAILY 06/16/13 [History] Bimatoprost [LUMIGAN 0.01% Ophth Soln] 1 drop EYEBOTH BEDTIME 06/16/13 [History] Carboxymethylcellulos/Glycerin [Refresh Optive] 1 drop EYELF BID PRN 06/16/13 [History] Insulin Lispro [Humalog Kwikpen U-100] 36 units SQ TIDM 06/16/13 [History] Losartan/Hydrochlorothiazide [Hyzaar 100-25] 1 tab PO DAILY 06/16/13 [History] Omeprazole [Prilosec] 40 mg PO DAILY 06/16/13 [History] cycloSPORINE [Restasis] 1 each EYEBOTH BID 06/16/13 [History] Alosetron HCl [Lotronex] 0.5 mg PO BID PRN 07/10/21 [History] Ascorbic Acid [Vitamin C with Pamela Hips] 500 mg PO DAILY 07/10/21 [History] Aspirin [Aspirin EC] 325 mg PO DAILY 07/10/21 [History] Carboxymethylcell/Hypromellose [GenTeal 0.25-0.3% Gel Drops] 1 drop EYEBOTH BEDTIME 07/10/21 [History] Cholecalciferol (Vitamin D3) [Vitamin D3] 1,000 unit PO DAILY 07/10/21 [History] Diltiazem [Diltiazem XR] 240 mg PO DAILY 07/10/21 [History] Dulaglutide [Trulicity] 3 mg SQ WE 07/10/21 [History] Gabapentin [Neurontin] 300 mg PO BID 07/10/21 [History] Insulin Degludec [Tresiba] 50 unit SQ BEDTIME 07/10/21 [History] Nystatin [Nyamyc] 1 applic TP BID PRN 07/10/21 [History] Rosuvastatin [Crestor] 5 mg PO BEDTIME 07/10/21 [History] Terbinafine [LamISIL AT 1% Crm] 1 applic BID PRN 07/10/21 [History] Zinc 25 mg PO DAILY 07/10/21 [History] metFORMIN [Glucophage] 500 mg PO 1800 07/10/21 [History] oxyCODONE 5 mg PO Q4H PRN 07/10/21 [History] traZODone 50 mg PO BEDTIME 07/10/21 [History] Acetaminophen [Acetaminophen ER] 650 mg PO Q8H PRN 07/11/21 [History] Aspirin [Halfprin] 81 mg PO BEDTIME 07/11/21 [History] Clobetasol [Clobetasol 0.05%] 1 applic TOP Q72H PRN 07/11/21 [History] Lutein 20 mg PO DAILY 07/11/21 [History] Multivitamins [Tab-A-Sherman] 1 tab PO DAILY 07/11/21 [History] estradioL [Estrace 0.01% Vaginal Crm] 1 g VAG WEEKLY PRN 07/11/21 [History] metFORMIN [Glucophage] 1,000 mg PO DAILY 07/11/21 [History] Past Medical History HEENT History: Reports: None Cardiovascular History: Reports: Hypertension Respiratory History: Reports: None Gastrointestinal History: Reports: None Genitourinary History: Reports: Diabetic Nephropathy 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: Reports: 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 Musculoskeletal History: Reports: None Neurological History: Reports: None Psychiatric History: Reports: Anxiety Endocrine/Metabolic History: Reports: Diabetes, Type II Hematologic History: Reports: None Immunologic History: Reports: None Oncologic (Cancer) History: Reports: None Dermatologic History: Reports: None - Infectious Disease History Infectious Disease History: Reports: None - Past Surgical History Head Surgeries/Procedures: Reports: None HEENT Surgical History: Reports: None Cardiovascular Surgical History: Reports: None Respiratory Surgical History: Reports: None GI Surgical History: Reports: None Female Surgical History: Reports: None Endocrine Surgical History: Reports: None Neurological Surgical History: Reports: None Musculoskeletal Surgical History: Reports: Hip Replacement Oncologic Surgical History: Reports: None Dermatological Surgical History: Reports: None Social & Family History - Tobacco Use Tobacco Use Status *Q: Former Tobacco User Used Tobacco, but Quit: Yes Month/Year Tobacco Last Used: 1979 - Caffeine Use Caffeine Use: Reports: Coffee - Recreational Drug Use Recreational Drug Use: No H&P Review of Systems - Review of Systems: Review Of Systems: Comprehensive ROS is negative, except as noted in HPI. Exam - Exam Exam: See Below - Vital Signs Vital Signs: Last Vital Signs Temp 99.8 F 07/10/21 18:01 Pulse 78 07/10/21 18:01 Resp 16 07/10/21 18:01 BP 95/55 L 07/10/21 18:01 Pulse Ox 97 07/10/21 18:01 Weight: 109.401 kg - Exam General: Alert HEENT: PERRLA Neck: Supple Lungs: Clear to Auscultation Cardiovascular: Regular Rate GI/Abdominal Exam: Normal Bowel Sounds Back Exam: Normal Inspection Extremities: Redness, Other (These redness around the right eye and purulent drainage noted from the incision on the right.) Skin: Warm Neurological: Cranial Nerves Intact Neuro Extensive - Mental Status: Alert, Oriented x3 Psychiatric: Alert, Normal Affect - Patient Data Lab Results Last 24 hrs: Laboratory Results - last 24 hr 07/10/21 07/10/21 07/10/21 Range/Units 12:30 12:30 12:30 WBC 15.3 H (3.0-10.3) x10-3/uL RBC 2.92 L (3.60-5.20) x10(6)uL Hgb 8.6 L (11.4-15.5) g/dL Hct 26.0 L (34.2-48.2) % MCV 89.0 (76.7-100.5) fL MCH 29.3 (23.9-33.9) pg MCHC 33.0 (31.9-34.8) g/dL RDW 12.7 (12.3-16.5) % Plt Count 584 H (151-488) x10(3)uL MPV 8.0 (7.1-12.4) fL Neut % (Auto) 86.7 H (30.8-76.2) % Lymph % (Auto) 6.7 L (18.4-52.1) % [place] % (Auto) 5.6 (4.4-15.7) % Eos % (Auto) 0.9 (0.6-8.1) % Baso % (Auto) 0.1 L (0.2-1.5) % Neut # (Auto) 13.2 H (1.5-6.3) x10-3/uL Lymph # (Auto) 1.0 (1.0-4.4) x10-3/uL [place] # (Auto) 0.9 (0.3-1.0) x10-3/uL Eos # (Auto) 0.1 (0.0-0.8) x10-3/uL Baso # (Auto) 0.0 (0.0-0.1) x10-3/uL Add Manual Diff Neutrophils % (Manual) (46-82) % Band Neutrophils % (0-6) % Lymphocytes % (Manual) (13-37) % Monocytes % (Manual) (4-12) % Eosinophils % (Manual) (0-5) % D-Dimer, Quantitative 2.41 H (0.0-0.59) mg/LFEU Sodium 128 L (135-145) mmol/L Potassium 3.3 L (3.5-5.3) mmol/L Chloride 90 L (100-110) mmol/L Carbon Dioxide 32 (21-32) mmol/L BUN 20 H (7-18) mg/dL Creatinine 1.2 H (0.55-1.02) mg/dL Est Cr Clr Drug Dosing TNP Estimated GFR (MDRD) 45 L (>60) BUN/Creatinine Ratio 16.7 (9-20) Glucose 278 H (80-116) mg/dL POC Glucose (80-116) mg/dL Lactic Acid (0.4-2.0) mmol/L Calcium 8.9 (8.6-10.2) mg/dL Total Bilirubin 0.9 (0.1-1.3) mg/dL AST 23 (5-25) IU/L ALT 21 (12-36) U/L Alkaline Phosphatase 102 (56-112) IU/L C-Reactive Protein (0.5-0.9) mg/dL Total Protein 6.0 (6.0-8.0) g/dL Albumin 2.0 L (3.2-4.6) g/dL Globulin 4.0 g/dL Albumin/Globulin Ratio 0.5 Urine Color (YELLOW) Urine Appearance (CLEAR) Urine pH (5.0-6.5) Ur Specific [place] (1.010-1.025) Urine Protein (NEGATIVE) mg/dL Urine Glucose (UA) (NORMAL) mg/dL Urine Ketones (NEGATIVE) mg/dL Urine Occult Blood (NEGATIVE) Urine Nitrite (NEGATIVE) Urine Bilirubin (NEGATIVE) Urine Urobilinogen (NEGATIVE) mg/dL Ur Leukocyte Esterase (NEGATIVE) Urine RBC (0-5) Urine WBC (0-5) Ur Squamous Epith Cells (NS,R,O) Urine Bacteria (NS) SARS-CoV-2 RNA (SEBASTIAN) (NEGATIVE) 07/10/21 07/10/21 07/10/21 Range/Units 12:30 12:30 12:31 WBC (3.0-10.3) x10-3/uL RBC (3.60-5.20) x10(6)uL Hgb (11.4-15.5) g/dL Hct (34.2-48.2) % MCV (76.7-100.5) fL MCH (23.9-33.9) pg MCHC (31.9-34.8) g/dL RDW (12.3-16.5) % Plt Count (151-488) x10(3)uL MPV (7.1-12.4) fL Neut % (Auto) (30.8-76.2) % Lymph % (Auto) (18.4-52.1) % [place] % (Auto) (4.4-15.7) % Eos % (Auto) (0.6-8.1) % Baso % (Auto) (0.2-1.5) % Neut # (Auto) (1.5-6.3) x10-3/uL Lymph # (Auto) (1.0-4.4) x10-3/uL [place] # (Auto) (0.3-1.0) x10-3/uL Eos # (Auto) (0.0-0.8) x10-3/uL Baso # (Auto) (0.0-0.1) x10-3/uL Add Manual Diff Neutrophils % (Manual) (46-82) % Band Neutrophils % (0-6) % Lymphocytes % (Manual) (13-37) % Monocytes % (Manual) (4-12) % Eosinophils % (Manual) (0-5) % D-Dimer, Quantitative (0.0-0.59) mg/LFEU Sodium (135-145) mmol/L Potassium (3.5-5.3) mmol/L Chloride (100-110) mmol/L Carbon Dioxide (21-32) mmol/L BUN (7-18) mg/dL Creatinine (0.55-1.02) mg/dL Est Cr Clr Drug Dosing Estimated GFR (MDRD) (>60) BUN/Creatinine Ratio (9-20) Glucose (80-116) mg/dL POC Glucose (80-116) mg/dL Lactic Acid 2.6 H* (0.4-2.0) mmol/L Calcium (8.6-10.2) mg/dL Total Bilirubin (0.1-1.3) mg/dL AST (5-25) IU/L ALT (12-36) U/L Alkaline Phosphatase (56-112) IU/L C-Reactive Protein 24.8 H* (0.5-0.9) mg/dL Total Protein (6.0-8.0) g/dL Albumin (3.2-4.6) g/dL Globulin g/dL Albumin/Globulin Ratio Urine Color (YELLOW) Urine Appearance (CLEAR) Urine pH (5.0-6.5) Ur Specific [place] (1.010-1.025) Urine Protein (NEGATIVE) mg/dL Urine Glucose (UA) (NORMAL) mg/dL Urine Ketones (NEGATIVE) mg/dL Urine Occult Blood (NEGATIVE) Urine Nitrite (NEGATIVE) Urine Bilirubin (NEGATIVE) Urine Urobilinogen (NEGATIVE) mg/dL Ur Leukocyte Esterase (NEGATIVE) Urine RBC (0-5) Urine WBC (0-5) Ur Squamous Epith Cells (NS,R,O) Urine Bacteria (NS) SARS-CoV-2 RNA (SEBASTIAN) Negative (NEGATIVE) 07/10/21 07/10/21 07/10/21 Range/Units 15:00 16:00 18:13 WBC (3.0-10.3) x10-3/uL RBC (3.60-5.20) x10(6)uL Hgb (11.4-15.5) g/dL Hct (34.2-48.2) % MCV (76.7-100.5) fL MCH (23.9-33.9) pg MCHC (31.9-34.8) g/dL RDW (12.3-16.5) % Plt Count (151-488) x10(3)uL MPV (7.1-12.4) fL Neut % (Auto) (30.8-76.2) % Lymph % (Auto) (18.4-52.1) % [place] % (Auto) (4.4-15.7) % Eos % (Auto) (0.6-8.1) % Baso % (Auto) (0.2-1.5) % Neut # (Auto) (1.5-6.3) x10-3/uL Lymph # (Auto) (1.0-4.4) x10-3/uL [place] # (Auto) (0.3-1.0) x10-3/uL Eos # (Auto) (0.0-0.8) x10-3/uL Baso # (Auto) (0.0-0.1) x10-3/uL Add Manual Diff Neutrophils % (Manual) (46-82) % Band Neutrophils % (0-6) % Lymphocytes % (Manual) (13-37) % Monocytes % (Manual) (4-12) % Eosinophils % (Manual) (0-5) % D-Dimer, Quantitative (0.0-0.59) mg/LFEU Sodium (135-145) mmol/L Potassium (3.5-5.3) mmol/L Chloride (100-110) mmol/L Carbon Dioxide (21-32) mmol/L BUN (7-18) mg/dL Creatinine (0.55-1.02) mg/dL Est Cr Clr Drug Dosing Estimated GFR (MDRD) (>60) BUN/Creatinine Ratio (9-20) Glucose (80-116) mg/dL POC Glucose 190 H (80-116) mg/dL Lactic Acid 1.6 (0.4-2.0) mmol/L Calcium (8.6-10.2) mg/dL Total Bilirubin (0.1-1.3) mg/dL AST (5-25) IU/L ALT (12-36) U/L Alkaline Phosphatase (56-112) IU/L C-Reactive Protein (0.5-0.9) mg/dL Total Protein (6.0-8.0) g/dL Albumin (3.2-4.6) g/dL Globulin g/dL Albumin/Globulin Ratio Urine Color Yellow (YELLOW) Urine Appearance Slightly cloudy (CLEAR) Urine pH 5.0 (5.0-6.5) Ur Specific [place] 1.010 (1.010-1.025) Urine Protein Negative (NEGATIVE) mg/dL Urine Glucose (UA) Normal (NORMAL) mg/dL Urine Ketones Negative (NEGATIVE) mg/dL Urine Occult Blood Negative (NEGATIVE) Urine Nitrite Negative (NEGATIVE) Urine Bilirubin Negative (NEGATIVE) Urine Urobilinogen 1 H (NEGATIVE) mg/dL Ur Leukocyte Esterase Negative (NEGATIVE) Urine RBC 0-5 (0-5) Urine WBC 0-5 (0-5) Ur Squamous Epith Cells Moderate H (NS,R,O) Urine Bacteria Moderate H (NS) SARS-CoV-2 RNA (SEBASTIAN) (NEGATIVE) 07/10/21 07/10/21 07/11/21 Range/Units 21:14 22:53 06:43 WBC 12.0 H (3.0-10.3) x10-3/uL RBC 2.63 L (3.60-5.20) x10(6)uL Hgb 7.7 L (11.4-15.5) g/dL Hct 23.2 L (34.2-48.2) % MCV 88.3 (76.7-100.5) fL MCH 29.4 (23.9-33.9) pg MCHC 33.3 (31.9-34.8) g/dL RDW 13.0 (12.3-16.5) % Plt Count 522 H (151-488) x10(3)uL MPV 7.5 (7.1-12.4) fL Neut % (Auto) (30.8-76.2) % Lymph % (Auto) (18.4-52.1) % [place] % (Auto) (4.4-15.7) % Eos % (Auto) (0.6-8.1) % Baso % (Auto) (0.2-1.5) % Neut # (Auto) (1.5-6.3) x10-3/uL Lymph # (Auto) (1.0-4.4) x10-3/uL [place] # (Auto) (0.3-1.0) x10-3/uL Eos # (Auto) (0.0-0.8) x10-3/uL Baso # (Auto) (0.0-0.1) x10-3/uL Add Manual Diff Yes Neutrophils % (Manual) 81 (46-82) % Band Neutrophils % 2 (0-6) % Lymphocytes % (Manual) 12 L (13-37) % Monocytes % (Manual) 3 L (4-12) % Eosinophils % (Manual) 2 (0-5) % D-Dimer, Quantitative (0.0-0.59) mg/LFEU Sodium (135-145) mmol/L Potassium (3.5-5.3) mmol/L Chloride (100-110) mmol/L Carbon Dioxide (21-32) mmol/L BUN (7-18) mg/dL Creatinine (0.55-1.02) mg/dL Est Cr Clr Drug Dosing Estimated GFR (MDRD) (>60) BUN/Creatinine Ratio (9-20) Glucose (80-116) mg/dL POC Glucose 326 H D 342 H (80-116) mg/dL Lactic Acid (0.4-2.0) mmol/L Calcium (8.6-10.2) mg/dL Total Bilirubin (0.1-1.3) mg/dL AST (5-25) IU/L ALT (12-36) U/L Alkaline Phosphatase (56-112) IU/L C-Reactive Protein (0.5-0.9) mg/dL Total Protein (6.0-8.0) g/dL Albumin (3.2-4.6) g/dL Globulin g/dL Albumin/Globulin Ratio Urine Color (YELLOW) Urine Appearance (CLEAR) Urine pH (5.0-6.5) Ur Specific [place] (1.010-1.025) Urine Protein (NEGATIVE) mg/dL Urine Glucose (UA) (NORMAL) mg/dL Urine Ketones (NEGATIVE) mg/dL Urine Occult Blood (NEGATIVE) Urine Nitrite (NEGATIVE) Urine Bilirubin (NEGATIVE) Urine Urobilinogen (NEGATIVE) mg/dL Ur Leukocyte Esterase (NEGATIVE) Urine RBC (0-5) Urine WBC (0-5) Ur Squamous Epith Cells (NS,R,O) Urine Bacteria (NS) SARS-CoV-2 RNA (SEBASTIAN) (NEGATIVE) 07/11/21 07/11/21 Range/Units 06:43 07:11 WBC (3.0-10.3) x10-3/uL RBC (3.60-5.20) x10(6)uL Hgb (11.4-15.5) g/dL Hct (34.2-48.2) % MCV (76.7-100.5) fL MCH (23.9-33.9) pg MCHC (31.9-34.8) g/dL RDW (12.3-16.5) % Plt Count (151-488) x10(3)uL MPV (7.1-12.4) fL Neut % (Auto) (30.8-76.2) % Lymph % (Auto) (18.4-52.1) % [place] % (Auto) (4.4-15.7) % Eos % (Auto) (0.6-8.1) % Baso % (Auto) (0.2-1.5) % Neut # (Auto) (1.5-6.3) x10-3/uL Lymph # (Auto) (1.0-4.4) x10-3/uL [place] # (Auto) (0.3-1.0) x10-3/uL Eos # (Auto) (0.0-0.8) x10-3/uL Baso # (Auto) (0.0-0.1) x10-3/uL Add Manual Diff Neutrophils % (Manual) (46-82) % Band Neutrophils % (0-6) % Lymphocytes % (Manual) (13-37) % Monocytes % (Manual) (4-12) % Eosinophils % (Manual) (0-5) % D-Dimer, Quantitative (0.0-0.59) mg/LFEU Sodium 134 L (135-145) mmol/L Potassium 3.0 L (3.5-5.3) mmol/L Chloride 96 L D (100-110) mmol/L Carbon Dioxide 31 (21-32) mmol/L BUN 14 (7-18) mg/dL Creatinine 0.9 (0.55-1.02) mg/dL Est Cr Clr Drug Dosing 55.25 Estimated GFR (MDRD) > 60 (>60) BUN/Creatinine Ratio 15.6 (9-20) Glucose 133 H D (80-116) mg/dL POC Glucose 128 H D (80-116) mg/dL Lactic Acid (0.4-2.0) mmol/L Calcium 8.2 L (8.6-10.2) mg/dL Total Bilirubin (0.1-1.3) mg/dL AST (5-25) IU/L ALT (12-36) U/L Alkaline Phosphatase (56-112) IU/L C-Reactive Protein (0.5-0.9) mg/dL Total Protein (6.0-8.0) g/dL Albumin (3.2-4.6) g/dL Globulin g/dL Albumin/Globulin Ratio Urine Color (YELLOW) Urine Appearance (CLEAR) Urine pH (5.0-6.5) Ur Specific [place] (1.010-1.025) Urine Protein (NEGATIVE) mg/dL Urine Glucose (UA) (NORMAL) mg/dL Urine Ketones (NEGATIVE) mg/dL Urine Occult Blood (NEGATIVE) Urine Nitrite (NEGATIVE) Urine Bilirubin (NEGATIVE) Urine Urobilinogen (NEGATIVE) mg/dL Ur Leukocyte Esterase (NEGATIVE) Urine RBC (0-5) Urine WBC (0-5) Ur Squamous Epith Cells (NS,R,O) Urine Bacteria (NS) SARS-CoV-2 RNA (SEBASTIAN) (NEGATIVE) Result Diagrams: 07/11/21 06:43 07/11/21 06:43 Magan Results Last 24 hrs: Microbiology 07/10/21 15:00 Influenza Type A Antigen Screen - Final Nasopharyngeal Swab NEGATIVE INFLUENZA A VIRUS AG REFERENCE RANGE: NEGATIVE Influenza Type B Antigen Screen - Final NEGATIVE INFLUENZA B VIRUS AG REFERENCE RANGE: NEGATIVE Sepsis Event Note - Evaluation Sepsis Screening Result: Possible Sepsis Risk - Problem List (1) History of total hip replacement SNOMED Code(s): 065010791913, 240254312599 ICD Code: Z96.649 - PRESENCE OF UNSPECIFIED ARTIFICIAL HIP JOINT Status: Acute Current Visit: Yes Qualifiers: Laterality: right Qualified Code(s): Z96.641 - Presence of right artificial hip joint (2) Uncontrolled type 2 diabetes mellitus SNOMED Code(s): 724653550, 697873698 ICD Code: E11.65 - TYPE 2 DIABETES MELLITUS WITH HYPERGLYCEMIA Status: Acute Current Visit: Yes Qualifiers: Glycemic state: with hyperglycemia Qualified Code(s): E11.65 - Type 2 diabetes mellitus with hyperglycemia (3) Obesity SNOMED Code(s): 475662002, 949098704 ICD Code: E66.9 - OBESITY, UNSPECIFIED Status: Acute Current Visit: Yes Qualifiers: Obesity type: due to excess calories (4) Hypotension SNOMED Code(s): 41708850 ICD Code: I95.9 - HYPOTENSION, UNSPECIFIED Status: Acute Current Visit: Yes (5) Anemia SNOMED Code(s): 035388491 ICD Code: D64.9 - ANEMIA, UNSPECIFIED Status: Acute Current Visit: Yes (6) Cellulitis SNOMED Code(s): 259442308 ICD Code: L03.90 - CELLULITIS, UNSPECIFIED Status: Acute Current Visit: Yes (7) Hyponatremia SNOMED Code(s): 11030268 ICD Code: E87.1 - HYPO-OSMOLALITY AND HYPONATREMIA Status: Acute Current Visit: Yes Problem List Initiated/Reviewed/Updated: Yes Orders Last 24hrs: Active Orders 24 hr Category Date Time Status Patient Status [ADT] Routine ADT 07/10/21 16:31 Active Blood Glucose Check, Bedside [RC] 07,11,17,21 Care 07/10/21 16:31 Active Oxygen Therapy [RC] PRN Care 07/10/21 16:31 Active Pulse Oximetry [RC] PRN Care 07/10/21 16:34 Active Up With Assistance [RC] ASDIRECTED Care 07/10/21 16:31 Active VTE/DVT Education [RC] Per Unit Routine Care 07/10/21 16:31 Active Vital Signs [RC] Q4H Care 07/10/21 16:31 Active Heart Healthy Diet [DIET] Diet 07/10/21 Dinner Ordered Hip Min 1V Rt [CR] Routine Exams 07/11/21 08:57 Ordered VL Duplex Lwr Ext Veins Ltd Rt [US] Routine Exams 07/11/21 08:57 Ordered CBC WITH AUTO DIFF [HEME] AM Lab 07/12/21 05:11 Ordered COMPREHENSIVE METABOLIC PN,CMP [CHEM] AM Lab 07/12/21 05:11 Ordered CRP [C-REACTIVE PROTEIN] [CHEM] AM Lab 07/12/21 05:11 Ordered CULTURE BLOOD [BC] Urgent Lab 07/10/21 14:35 Received CULTURE BLOOD [BC] Urgent Lab 07/10/21 16:00 Received LACTIC ACID [CHEM] AM Lab 07/12/21 05:11 Ordered RED BLOOD CELLS LP [BBK] Urgent Lab 07/11/21 08:55 Ordered TYPE AND SCREEN [BBK] Routine Lab 07/11/21 08:55 Ordered TYPE AND SCREEN [BBK] Urgent Lab 07/11/21 08:55 Ordered Acetaminophen [Tylenol Arthritis Pain] Med 07/11/21 08:58 Ordered 650 mg PO Q8H PRN Acetaminophen/oxyCODONE [Percocet 325-5 MG] Med 07/10/21 16:31 Active 1 tab PO Q4H PRN Acetaminophen/oxyCODONE [Percocet 325-5 MG] Med 07/10/21 16:59 Active 2 tab PO Q4H PRN Alosetron HCl [Lotronex] Med 07/11/21 08:58 Ordered 0.5 mg PO BID PRN Ascorbic Acid [Vitamin C] Med 07/11/21 09:00 Ordered 500 mg PO DAILY Aspirin [Ecotrin] Med 07/11/21 09:00 Ordered 325 mg PO DAILY Carboxymethylcell/Hypromellose [GenTeal Moderate to Med 07/11/21 21:00 Ordered Severe Gel Drops] 1 drop EYEBOTH BEDTIME Carboxymethylcellulos/Glycerin [Refresh Optive] Med 07/10/21 21:00 Active 0 ml EYELF BID Cholecalciferol (Vitamin D3) [Vitamin D3] Med 07/11/21 09:00 Ordered 1,000 unit PO DAILY Clobetasol [Clobetasol Propionate 0.05%] Med 07/11/21 08:58 Ordered 1 applic TOP Q72H PRN Dextrose 50% in Water Med 07/10/21 17:26 Active 50 ml IVPUSH ASDIRECTED PRN Docusate Sodium/Sennosides [Senna Plus] Med 07/10/21 16:31 Active 1 tab PO BID PRN Dulaglutide [Trulicity] Med 07/16/21 08:58 Ordered 3 mg SQ WE Enoxaparin [Lovenox] Med 07/10/21 21:00 Active 40 mg SUBCUT Q24H Gabapentin [Neurontin] Med 07/11/21 09:00 Ordered 300 mg PO BID Glucagon,Human Recombinant [GlucaGen] Med 07/10/21 17:26 Active 1 mg IM ASDIRECTED PRN Insulin Degludec [Tresiba] Med 07/11/21 21:00 Ordered 50 unit SQ BEDTIME Insulin Lispro [HumaLOG] Med 07/10/21 18:00 Active 7 unit SUBCUT TIDMEALS Latanoprost [Xalatan 0.005% Ophth Soln] Med 07/10/21 21:00 Active 0 ml EYEBOTH BEDTIME Lutein [Lutein] Med 07/11/21 09:00 Ordered 20 mg PO DAILY Morphine Med 07/10/21 16:31 Active 4 mg IVPUSH Q2H PRN Multivitamins [Tab-A-Sherman] Med 07/11/21 09:00 Ordered 1 tab PO DAILY Nystatin [Nystop] Med 07/11/21 08:58 Ordered 1 applic .XX BID PRN Ondansetron [Zofran] Med 07/10/21 16:31 Active 4 mg IVPUSH Q4H PRN Pantoprazole [ProTONIX] Med 07/11/21 07:30 Active 40 mg PO ACBREAKFAST Rosuvastatin [Crestor] Med 07/11/21 21:00 Active 5 mg PO BEDTIME Rosuvastatin [Crestor] Med 07/11/21 21:00 Ordered 5 mg PO BEDTIME Sodium Chloride 0.9% [Normal Saline] 1,000 ml Med 07/10/21 22:15 Active IV ASDIRECTED Sodium Chloride 0.9% [Normal Saline] 250 ml Med 07/11/21 09:00 Ordered IV ASDIRECTED Sodium Chloride 0.9% [Saline Flush] Med 07/10/21 12:26 Active 10 ml FLUSH ASDIRECTED PRN Terbinafine [LamISIL AT 1% Crm] Med 07/11/21 08:58 Ordered 1 applic .XX BID PRN VANCOmycin 2 GM/400 ML 2 gm Med 07/11/21 09:00 Ordered Premix Bag 1 bag IV Q24H Zinc [Zinc] Med 07/11/21 09:00 Ordered 25 mg PO DAILY cefTRIAXone [Rocephin] Med 07/10/21 14:00 Active 1 gm IVPUSH Q24H cycloSPORINE [Restasis] Med 07/10/21 21:00 Pending 1 each .XX BID estradioL [Estrace 0.01% Vaginal Crm] Med 07/11/21 08:58 Ordered 1 g VAG WEEKLY PRN metFORMIN [Glucophage] Med 07/11/21 09:00 Ordered 1,000 mg PO DAILY metFORMIN [Glucophage] Med 07/12/21 08:00 Active 1,000 mg PO WITHBREAKFAST metFORMIN [Glucophage] Med 07/11/21 18:00 Ordered 500 mg PO 1800 metFORMIN [Glucophage] Med 07/13/21 18:00 Active 500 mg PO WITHDINNER oxyCODONE Med 07/11/21 08:58 Ordered 5 mg PO Q4H PRN traZODone Med 07/11/21 21:00 Ordered 50 mg PO BEDTIME Blood Culture x2 Reflex Set [OM.PC] Urgent Oth 07/10/21 12:26 Ordered Isolation [COMM] Routine Oth 07/10/21 14:00 Ordered Saline Lock Insert [OM.PC] Routine Oth 07/10/21 12:26 Ordered Sequential Compression Device [OM.PC] Per Unit Routine Oth 07/10/21 16:34 Ordered Transfuse Red Blood Cells [COMM] Routine Oth 07/11/21 08:55 Ordered Resuscitation Status Routine Resus Stat 07/10/21 16:31 Ordered EKG 12 Lead [EK] Routine Ther 07/10/21 12:29 Ordered Medication Orders Carboxymethylcellulose (Carboxymethylcellulose 0.5%/Glycerin 0.9% Ophth Soln 15 Ml Bottle) 0 ml EYELF BID [facility] Last Admin: 07/11/21 08:43 Dose: 1 drop Documented by: Admin: 07/10/21 22:21 Dose: 1 drop Documented by: SCOTT Ceftriaxone Sodium (Ceftriaxone 1 Gm Vial) 1 gm IVPUSH Q24H [facility] Last Admin: 07/10/21 22:17 Dose: Not Given Documented by: IVAN Cyclosporine (Cyclosporine Ophth Drops U/D Box Of 30) 1 each .XX BID MERVAT Dextrose/Water (50% Dextrose In Water 50 Ml Syringe) 50 ml IVPUSH ASDIRECTED PRN PRN Reason: Hypoglycemia Enoxaparin Sodium (Enoxaparin 40 Mg/0.4 Ml Syringe) 40 mg SUBCUT Q24H [facility] Last Admin: 07/10/21 21:30 Dose: 40 mg Documented by: SCOTT Glucagon (Glucagon,Human Recombinant 1 Mg Vial) 1 mg IM ASDIRECTED PRN PRN Reason: Hypoglycemia Sodium Chloride (Normal Saline) 1,000 mls @ 150 mls/hr IV ASDIRECTED [facility] Last Admin: 07/11/21 05:58 Dose: 150 mls/hr Documented by: Infusion: 07/11/21 05:53 Dose: 150 mls/hr Documented by: Admin: 07/10/21 23:12 Dose: 150 mls/hr Documented by: Infusion: 07/10/21 22:21 Dose: 150 mls/hr Documented by: Admin: 07/10/21 15:40 Dose: 150 mls/hr Documented by: IVAN Vancomycin HCl 2 gm/ Premix 400 mls @ 200 mls/hr IV ONETIME ONE Stop: 07/11/21 10:59 Sodium Chloride (Normal Saline) 250 mls @ 100 mls/hr IV ASDIRECTED [facility] Insulin Human Lispro (Insulin Lispro 100 Unit/Ml 3 Ml Kwikpen) 7 unit SUBCUT TIDMEALS [facility] Last Admin: 07/11/21 08:38 Dose: 7 units Documented by: INGRID Dealigned by: JD Latanoprost (Latanoprost 0.005% Ophth Soln 2.5 Ml Bottle) 0 ml EYEBOTH BEDTIME [facility] Last Admin: 07/10/21 21:30 Dose: 1 drop Documented by: SCOTT Metformin HCl (Metformin 1,000 Mg Tab) 1,000 mg PO WITHBREAKFAST [facility] Metformin HCl (Metformin 500 Mg Tab) 500 mg PO WITHDINNER [facility] Morphine Sulfate (Morphine 4 Mg/Ml Vial) 4 mg IVPUSH Q2H PRN PRN Reason: Pain Ondansetron HCl (Ondansetron 4 Mg/2 Ml Sdv) 4 mg IVPUSH Q4H PRN PRN Reason: Nausea/Vomiting Oxycodone/Acetaminophen (Acetaminophen/Oxycodone 325-5 Mg Tab) 1 tab PO Q4H PRN PRN Reason: Pain (moderate 4-6) Last Admin: 07/11/21 06:03 Dose: 1 tab Documented by: SCOTT Oxycodone/Acetaminophen (Acetaminophen/Oxycodone 325-5 Mg Tab) 2 tab PO Q4H PRN PRN Reason: SEVERE PAIN Last Admin: 07/10/21 21:55 Dose: 2 tab Documented by: SCOTT Pantoprazole Sodium (Pantoprazole 40 Mg Tab.Cr) 40 mg PO ACBREAKFAST MERVAT Last Admin: 07/11/21 06:55 Dose: 40 mg Documented by: SCOTT Rosuvastatin Calcium (Rosuvastatin 10 Mg Tab) 5 mg PO BEDTIME MERVAT Senna/Docusate Sodium (Docusate Sodium/Sennosides 50-8.6 Mg Tab) 1 tab PO BID PRN PRN Reason: Constipation Sodium Chloride (Sodium Chloride 0.9% 10 Ml Syringe) 10 ml FLUSH ASDIRECTED PRN PRN Reason: Keep Vein Open Assessment/Plan Comment:: 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 However,her blood pressure has been low this morning, and feels weak and generally sick. I am genuinely Concerned that she might have early prosthetic joint infection, perhaps sepsis. I called essential, but they have no bed availability as of this point, but to place on waiting list. In the meantime, I will give a bolus of normal saline, type and cross and transfuse 1 unit, and add vancomycin to her treatment regimen. Of ordered for right hip x-ray, and ultrasound of the right lower extremity to r/o DVT. I will repeat labs including a CBC and CMP lactic acid.
[2021-07-11] MEDS: Aspirin 325 MG Tab.EC PO SCH (10:15)
[2021-07-11] MEDS: Ascorbic Acid 500 MG Tab PO SCH (10:15)
[2021-07-11] MEDS: Multivitamin Tab PO SCH (10:15)
[2021-07-11] MEDS: Cholecalciferol (Vitamin D3) 25 MCG Tab PO SCH (10:16)
[2021-07-11] MEDS: Gabapentin 300 MG Cap PO SCH ×2 (10:18→20:22)
[2021-07-11] MEDS: Insulin Lispro 100 Unit/ML 3 ML KwikPen SUBCUT SCH ×2 (11:37→17:53)
[2021-07-11] MEDS: cefTRIAXone 1 GM Vial IVPUSH SCH (13:03)
--- NOTE | 2021-07-11 15:12 | CR ---
RIGHT HIP INDICATION: Question septic arthritis, status post hip replacement 07/02/21. FINDINGS: AP and lateral views of the right hip were obtained 07/11/21 and compared with 07/03/21 and 05/29/21. Total hip arthroplasty is noted which appears to be in good position and alignment, without evidence of a complicating process. There appears to be subcutaneous air bubbles in the anterior slightly lateral thigh adjacent to the level of the femoral component of the right hip arthroplasty. This could be on the basis of infection, but should be correlated clinically. IMPRESSION: 1. Satisfactory appearance postop right FEDER[place]. 2. Mild osteoarthritis right sacroiliac joint. 3. Air bubbles noted in the subcutaneous tissue anterolateral to the femoral component of the hip prosthesis, etiology postsurgical versus gas forming organism infection - correlate clinically. Ultrasound of this area may be helpful for further evaluation, as felt to be clinically necessary. Report was called to Dr. Valdovinos at approximately 1455 hours 07/11/21. [facility]
--- NOTE | 2021-07-11 15:42 | US ---
INDICATION: Hip pain, question DVT. DUPLEX ULTRASOUND, RIGHT LOWER EXTREMITY VEINS: Utilizing 2-D real time, duplex Doppler spectral analysis and color flow imaging, examination of the right lower extremity veins, including the common femoral vein, proximal greater saphenous vein, proximal deep femoral vein, proximal femoral vein, mid femoral vein, distal femoral vein, popliteal vein, posterior tibial vein, anterior tibial vein, and peroneal vein, revealed no evidence of deep venous thrombosis or obstruction. Compression views showed no abnormal lack of compression to suggest thrombosis. No evidence of incompetence of the valves was identified. IMPRESSION: Duplex ultrasound, right lower extremity veins, shows no evidence of deep venous thrombosis or incompetence. Report was called to Dr. Valdovinos at 1522 hours, 07/11/21. [facility]
[2021-07-11] MEDS: Enoxaparin 40 MG/0.4 ML Syringe SUBCUT SCH (20:21)
[2021-07-11] MEDS: Rosuvastatin 10 MG Tab PO SCH (20:22)
[2021-07-11] MEDS: Latanoprost 0.005% Ophth Soln 2.5 ML Bottle EYEBOTH SCH (20:24)
[2021-07-11] MEDS: traZODone 50 MG Tab PO SCH (20:25)
[2021-07-11] MEDS: VANCOmycin 1.5 GM/300 ML 300 ML IV SCH (20:33)
--- NOTE | 2021-07-11 20:38 | PCM.SN.2 ---
- Free Text/Narrative Note: ANESTHESIA SERVICES Date: 07/11/2021 Time: 1903 to 2014 Procedure: Peripheral Venous Access Dx: Moderate Acute Anemia, S/P Right FEDERICO with site infection, and extremely difficult IV insertion I was called by the floor RN from placement of peripheral vascular access. She has been tried several times without success and her right prior IV site has infiltrated in her ACF. I tried several times including her right and left upper arms and chest areas without success. The floor is strongly suggesting at least a 20 Ga. IV placed for blood. I placed her in a Trendelenburg position for a possible right external Jugular placement and I saw a superficial vein in her right shoulder/chest area. I prepped the site with several alcohol wipes and localized the insertion site with 1% Lidocaine Plain using a 25 Ga. needle. Using a BD Insyte Autoguard BC Winged 20 Ga. X1.16 In. Catheter, I inserted and advanced the catheter without much difficulty. I flushed the catheter with 20 ml's of Normal Saline with complications. An Op-Site dressing was applied and taped very well. She elisabethe rated all of this very well. Amadeo Tavarez CRNA, A Time Documentation
[2021-07-11] MEDS ORDERED: Insulin Glargine,Human Rec. Analog 100 Units/ML 3 ML Pen SUBCUT ONE (20:43)
[2021-07-11] MEDS: Insulin Glargine,Human Rec. Analog 100 Units/ML 3 ML Pen SUBCUT SCH (20:47)
[2021-07-11] MEDS ORDERED: HYPROMELLOSE EYEBOTH SCH (21:00)
[2021-07-11] MEDS ORDERED: CARBOXYMETHYLCELLULOSE EYEBOTH SCH (21:00)
[2021-07-11] MEDS ORDERED: Non-Formulary Medication 1 Each (Rosuvastatin [Crestor] 5 MG Tablet) PO SCH (21:00)
[2021-07-12] MEDS: Acetaminophen/oxyCODONE 325-5 MG Tab PO PRN ×3 (05:29→21:40)
[2021-07-12] MEDS: Sodium Chloride 0.9% 1,000 ML IV SCH ×2 (05:31→15:45)
[2021-07-12] MEDS: Pantoprazole 40 MG Tab.CR PO SCH ×2 (05:33→06:44)
[2021-07-12] MEDS: Gabapentin 300 MG Cap PO SCH ×2 (08:05→20:22)
[2021-07-12] MEDS: Aspirin 325 MG Tab.EC PO SCH (09:03)
[2021-07-12] MEDS: Cholecalciferol (Vitamin D3) 25 MCG Tab PO SCH (09:03)
[2021-07-12] MEDS: Multivitamin Tab PO SCH (09:03)
[2021-07-12] MEDS: Carboxymethylcellulose 0.5%/Glycerin 0.9% Ophth Soln 15 ML Bottle EYELF SCH ×2 (09:04→20:21)
[2021-07-12] MEDS: Ascorbic Acid 500 MG Tab PO SCH (09:06)
[2021-07-12] MEDS: Insulin Lispro 100 Unit/ML 3 ML KwikPen SUBCUT SCH ×3 (09:13→17:44)
--- NOTE | 2021-07-12 09:20 | PCM.PN ---
- General Info Date of Service: 07/12/21 Subjective Update: Karla feels better today. She has no systemic symptoms. However she still has copious amounts of purulent drainage from the right hip wound Functional Status: Reports: Pain Controlled - Review of Systems General: Reports: No Symptoms HEENT: Reports: No Symptoms Pulmonary: Reports: No Symptoms - Patient Data Vitals - Most Recent: Last Vital Signs Temp 99.4 F 07/12/21 06:15 Pulse 97 07/12/21 06:15 Resp 16 07/12/21 06:15 BP 128/54 L 07/12/21 06:15 Pulse Ox 96 07/12/21 06:15 Weight - Most Recent: 112.718 kg I&O - Last 24 Hours: Intake & Output 07/11/21 07/12/21 07/12/21 22:59 06:59 14:59 Intake Total 2015 1500 Output Total 1200 800 Balance 816 700 Lab Results Last 24 Hours: Laboratory Results - last 24 hr 07/11/21 07/11/21 07/11/21 Range/Units 06:43 11:18 17:49 WBC (3.0-10.3) x10-3/uL RBC (3.60-5.20) x10(6)uL Hgb (11.4-15.5) g/dL Hct (34.2-48.2) % MCV (76.7-100.5) fL MCH (23.9-33.9) pg MCHC (31.9-34.8) g/dL RDW (12.3-16.5) % Plt Count (151-488) x10(3)uL MPV (7.1-12.4) fL Neut % (Auto) (30.8-76.2) % Lymph % (Auto) (18.4-52.1) % [place] % (Auto) (4.4-15.7) % Eos % (Auto) (0.6-8.1) % Baso % (Auto) (0.2-1.5) % Neut # (Auto) (1.5-6.3) x10-3/uL Lymph # (Auto) (1.0-4.4) x10-3/uL [place] # (Auto) (0.3-1.0) x10-3/uL Eos # (Auto) (0.0-0.8) x10-3/uL Baso # (Auto) (0.0-0.1) x10-3/uL Sodium (135-145) mmol/L Potassium (3.5-5.3) mmol/L Chloride (100-110) mmol/L Carbon Dioxide (21-32) mmol/L BUN (7-18) mg/dL Creatinine (0.55-1.02) mg/dL Est Cr Clr Drug Dosing mL/min Estimated GFR (MDRD) (>60) BUN/Creatinine Ratio (9-20) Glucose (80-116) mg/dL POC Glucose 231 H D 252 H (80-116) mg/dL Lactic Acid (0.4-2.0) mmol/L Calcium (8.6-10.2) mg/dL Total Bilirubin (0.1-1.3) mg/dL AST (5-25) IU/L ALT (12-36) U/L Alkaline Phosphatase (56-112) IU/L C-Reactive Protein (0.5-0.9) mg/dL Total Protein (6.0-8.0) g/dL Albumin (3.2-4.6) g/dL Globulin g/dL Albumin/Globulin Ratio Blood Type A NEGATIVE Gel Antibody Screen Negative Crossmatch See Detail 07/11/21 07/12/21 07/12/21 Range/Units 20:20 06:30 06:30 WBC 8.2 (3.0-10.3) x10-3/uL RBC 2.80 L (3.60-5.20) x10(6)uL Hgb 8.4 L (11.4-15.5) g/dL Hct 24.5 L (34.2-48.2) % MCV 87.6 (76.7-100.5) fL MCH 29.9 (23.9-33.9) pg MCHC 34.1 (31.9-34.8) g/dL RDW 13.2 (12.3-16.5) % Plt Count 456 (151-488) x10(3)uL MPV 7.1 (7.1-12.4) fL Neut % (Auto) 79.0 H (30.8-76.2) % Lymph % (Auto) 12.0 L (18.4-52.1) % [place] % (Auto) 6.4 (4.4-15.7) % Eos % (Auto) 1.9 (0.6-8.1) % Baso % (Auto) 0.7 (0.2-1.5) % Neut # (Auto) 6.5 H (1.5-6.3) x10-3/uL Lymph # (Auto) 1.0 (1.0-4.4) x10-3/uL [place] # (Auto) 0.5 (0.3-1.0) x10-3/uL Eos # (Auto) 0.2 (0.0-0.8) x10-3/uL Baso # (Auto) 0.1 (0.0-0.1) x10-3/uL Sodium 134 L (135-145) mmol/L Potassium 2.9 L (3.5-5.3) mmol/L Chloride 98 L (100-110) mmol/L Carbon Dioxide 29 (21-32) mmol/L BUN 8 (7-18) mg/dL Creatinine 0.8 (0.55-1.02) mg/dL Est Cr Clr Drug Dosing 62.15 mL/min Estimated GFR (MDRD) > 60 (>60) BUN/Creatinine Ratio 10.0 (9-20) Glucose 254 H D (80-116) mg/dL POC Glucose 323 H (80-116) mg/dL Lactic Acid (0.4-2.0) mmol/L Calcium 7.9 L (8.6-10.2) mg/dL Total Bilirubin 0.6 (0.1-1.3) mg/dL AST 22 (5-25) IU/L ALT 24 D (12-36) U/L Alkaline Phosphatase 115 H (56-112) IU/L C-Reactive Protein (0.5-0.9) mg/dL Total Protein 4.8 L (6.0-8.0) g/dL Albumin 1.5 L* (3.2-4.6) g/dL Globulin 3.3 g/dL Albumin/Globulin Ratio 0.5 Blood Type Gel Antibody Screen Crossmatch 07/12/21 07/12/21 Range/Units 06:30 06:30 WBC (3.0-10.3) x10-3/uL RBC (3.60-5.20) x10(6)uL Hgb (11.4-15.5) g/dL Hct (34.2-48.2) % MCV (76.7-100.5) fL MCH (23.9-33.9) pg MCHC (31.9-34.8) g/dL RDW (12.3-16.5) % Plt Count (151-488) x10(3)uL MPV (7.1-12.4) fL Neut % (Auto) (30.8-76.2) % Lymph % (Auto) (18.4-52.1) % [place] % (Auto) (4.4-15.7) % Eos % (Auto) (0.6-8.1) % Baso % (Auto) (0.2-1.5) % Neut # (Auto) (1.5-6.3) x10-3/uL Lymph # (Auto) (1.0-4.4) x10-3/uL [place] # (Auto) (0.3-1.0) x10-3/uL Eos # (Auto) (0.0-0.8) x10-3/uL Baso # (Auto) (0.0-0.1) x10-3/uL Sodium (135-145) mmol/L Potassium (3.5-5.3) mmol/L Chloride (100-110) mmol/L Carbon Dioxide (21-32) mmol/L BUN (7-18) mg/dL Creatinine (0.55-1.02) mg/dL Est Cr Clr Drug Dosing mL/min Estimated GFR (MDRD) (>60) BUN/Creatinine Ratio (9-20) Glucose (80-116) mg/dL POC Glucose (80-116) mg/dL Lactic Acid 1.0 (0.4-2.0) mmol/L Calcium (8.6-10.2) mg/dL Total Bilirubin (0.1-1.3) mg/dL AST (5-25) IU/L ALT (12-36) U/L Alkaline Phosphatase (56-112) IU/L C-Reactive Protein 18.1 H* (0.5-0.9) mg/dL Total Protein (6.0-8.0) g/dL Albumin (3.2-4.6) g/dL Globulin g/dL Albumin/Globulin Ratio Blood Type Gel Antibody Screen Crossmatch Magan Results Last 24 Hours: Microbiology 07/10/21 16:00 Aerobic Blood Culture - Preliminary Blood - Venous - Lab Draw NO GROWTH AFTER 1 DAY Anaerobic Blood Culture - Preliminary NO GROWTH AFTER 1 DAY 07/10/21 14:35 Aerobic Blood Culture - Preliminary Blood - Venous NO GROWTH AFTER 1 DAY Anaerobic Blood Culture - Preliminary NO GROWTH AFTER 1 DAY Med Orders - Current: Current Medications Acetaminophen (Acetaminophen 650 Mg Tab.Er) 650 mg PO Q8H PRN PRN Reason: Pain Ascorbic Acid (Ascorbic Acid 500 Mg Tab) 500 mg PO DAILY [facility] Last Admin: 07/12/21 09:06 Dose: 500 mg Documented by: Aspirin (Aspirin 325 Mg Tab.Ec) 325 mg PO DAILY [facility] Last Admin: 07/12/21 09:03 Dose: 325 mg Documented by: Carboxymethylcellulose (Carboxymethylcellulose 0.5%/Glycerin 0.9% Ophth Soln 15 Ml Bottle) 0 ml EYELF BID [facility] Last Admin: 07/12/21 09:04 Dose: 1 drop Documented by: Ceftriaxone Sodium (Ceftriaxone 1 Gm Vial) 1 gm IVPUSH Q24H [facility] Last Admin: 07/11/21 13:03 Dose: 1 gm Documented by: Cholecalciferol (Cholecalciferol (Vitamin D3) 25 Mcg Tab) 25 mcg PO DAILY [facility] Last Admin: 07/12/21 09:03 Dose: 25 mcg Documented by: Dextrose/Water (50% Dextrose In Water 50 Ml Syringe) 50 ml IVPUSH ASDIRECTED PRN PRN Reason: Hypoglycemia Enoxaparin Sodium (Enoxaparin 40 Mg/0.4 Ml Syringe) 40 mg SUBCUT Q24H [facility] Last Admin: 07/11/21 20:21 Dose: 40 mg Documented by: Gabapentin (Gabapentin 300 Mg Cap) 300 mg PO BID [facility] Last Admin: 07/12/21 08:05 Dose: 300 mg Documented by: Glucagon (Glucagon,Human Recombinant 1 Mg Vial) 1 mg IM ASDIRECTED PRN PRN Reason: Hypoglycemia Sodium Chloride (Normal Saline) 1,000 mls @ 150 mls/hr IV ASDIRECTED [facility] Last Admin: 07/12/21 05:31 Dose: 125 mls/hr Documented by: Sodium Chloride (Normal Saline) 250 mls @ 100 mls/hr IV ASDIRECTED [facility] Vancomycin HCl (Vancomycin 1.5 Gm/300 Ml) 300 mls @ 200 mls/hr IV Q12H [facility] Last Admin: 07/11/21 20:33 Dose: 200 mls/hr Documented by: Insulin Glargine (Insulin Glargine,Human Rec. Analog 100 Units/Ml 3 Ml Pen) 50 units SUBCUT BEDTIME [facility] Last Admin: 07/11/21 20:47 Dose: 50 units Documented by: Insulin Human Lispro (Insulin Lispro 100 Unit/Ml 3 Ml Kwikpen) 0 unit SUBCUT TIDMEALS [facility]; Protocol Last Admin: 07/12/21 09:13 Dose: 6 units Documented by: Latanoprost (Latanoprost 0.005% Ophth Soln 2.5 Ml Bottle) 0 ml EYEBOTH BEDTIME [facility] Last Admin: 07/11/21 20:24 Dose: 1 drop Documented by: Lutein (Lutein 10 Mg Tab) 20 mg PO DAILY [facility] Last Admin: 07/12/21 09:03 Dose: 20 mg Documented by: Metformin HCl (Metformin 1,000 Mg Tab) 1,000 mg PO WITHBREAKFAST [facility] Metformin HCl (Metformin 500 Mg Tab) 500 mg PO WITHDINNER [facility] Morphine Sulfate (Morphine 4 Mg/Ml Vial) 4 mg IVPUSH Q2H PRN PRN Reason: Pain Multivitamins/Minerals/Vitamin C (Multivitamin Tab) 1 tab PO DAILY [facility] Last Admin: 07/12/21 09:03 Dose: 1 tab Documented by: Nystatin (Nystatin Topical Powder 15 Gm Bottle) 0 gm TOP BID PRN PRN Reason: Rash Ondansetron HCl (Ondansetron 4 Mg/2 Ml Sdv) 4 mg IVPUSH Q4H PRN PRN Reason: Nausea/Vomiting Oxycodone/Acetaminophen (Acetaminophen/Oxycodone 325-5 Mg Tab) 1 tab PO Q4H PRN PRN Reason: Pain (moderate 4-6) Last Admin: 07/12/21 05:29 Dose: 1 tab Documented by: Oxycodone/Acetaminophen (Acetaminophen/Oxycodone 325-5 Mg Tab) 2 tab PO Q4H PRN PRN Reason: SEVERE PAIN Last Admin: 07/10/21 21:55 Dose: 2 tab Documented by: Pantoprazole Sodium (Pantoprazole 40 Mg Tab.Cr) 40 mg PO ACBREAKFAST [facility] Last Admin: 07/12/21 06:44 Dose: Not Given Documented by: Rosuvastatin Calcium (Rosuvastatin 10 Mg Tab) 5 mg PO BEDTIME [facility] Last Admin: 07/11/21 20:22 Dose: 5 mg Documented by: Senna/Docusate Sodium (Docusate Sodium/Sennosides 50-8.6 Mg Tab) 1 tab PO BID PRN PRN Reason: Constipation Last Admin: 07/12/21 05:43 Dose: 1 tab Documented by: Sodium Chloride (Sodium Chloride 0.9% 10 Ml Syringe) 10 ml FLUSH ASDIRECTED PRN PRN Reason: Keep Vein Open Trazodone HCl (Trazodone 50 Mg Tab) 50 mg PO BEDTIME [facility] Last Admin: 07/11/21 20:25 Dose: 50 mg Documented by: Vancomycin HCl (Pharmacy To Dose - Vancomycin) 1 dose .XX ASDIRECTED [facility] Discontinued Medications Alprazolam (Alprazolam 0.5 Mg Tab) 0.5 mg PO DAILY PRN PRN Reason: Anxiety Ceftriaxone Sodium (Ceftriaxone 2 Gm Vial) 2 gm IVPUSH NOW STA Stop: 07/10/21 13:46 Last Admin: 07/10/21 14:30 Dose: 1 gm Documented by: Dextrose/Water (50% Dextrose In Water 50 Ml Syringe) 50 ml IVPUSH ASDIRECTED PRN PRN Reason: Hypoglycemia Flecainide Acetate (Flecainide 100 Mg Tab) 75 mg PO BID [facility] Last Admin: 07/10/21 22:24 Dose: Not Given Documented by: Glucagon (Glucagon,Human Recombinant 1 Mg Vial) 1 mg IM ASDIRECTED PRN PRN Reason: Hypoglycemia Sodium Chloride (Normal Saline) 1,000 mls @ 500 mls/hr IV ASDIRECTED [facility] Last Admin: 07/10/21 13:10 Dose: 500 mls/hr Documented by: Vancomycin HCl 2 gm/ Premix 400 mls @ 200 mls/hr IV ONETIME ONE Stop: 07/11/21 10:59 Last Admin: 07/11/21 10:12 Dose: 200 mls/hr Documented by: Insulin Human Lispro (Insulin Lispro 100 Unit/Ml 3 Ml Kwikpen) 7 unit SUBCUT TIDMEALS [facility] Last Admin: 07/11/21 08:38 Dose: 7 units Documented by: Insulin Human Lispro (Insulin Lispro 100 Unit/Ml 3 Ml Kwikpen) 10 unit SUBCUT ONETIME ONE Stop: 07/10/21 21:46 Last Admin: 07/10/21 21:45 Dose: 10 units Documented by: Insulin Human Lispro (Insulin Lispro 100 Unit/Ml 3 Ml Kwikpen) 10 unit SUBCUT ONETIME ONE Stop: 07/10/21 23:31 Last Admin: 07/10/21 23:35 Dose: 10 units Documented by: Iopamidol (Iopamidol 755 Mg/Ml 100 Ml Bottle) 100 ml IV . DIRECTED ONE Stop: 07/10/21 13:59 Last Admin: 07/10/21 14:51 Dose: 90 ml Documented by: Meloxicam (Meloxicam 15 Mg Tab) 15 mg PO DAILY [facility] Morphine Sulfate (Morphine 4 Mg/Ml Vial) 4 mg IVPUSH NOW STA Stop: 07/10/21 13:14 Last Admin: 07/10/21 13:16 Dose: 4 mg Documented by: Ondansetron HCl (Ondansetron 4 Mg/2 Ml Sdv) 4 mg IVPUSH NOW STA Stop: 07/10/21 13:46 Last Admin: 07/10/21 14:28 Dose: 4 mg Documented by: Simvastatin (Simvastatin 10 Mg Tab) 10 mg PO BEDTIME [facility] Last Admin: 07/10/21 21:48 Dose: 10 mg Documented by: - Exam General: Alert, Oriented HEENT: Pupils Equal Neck: Supple Lungs: Clear to Auscultation Cardiovascular: Regular Rate GI/Abdominal Exam: Normal Bowel Sounds (Female) Exam: Normal External Exam Back Exam: Normal Inspection - Patient Data Lab Results Last 24 hrs: Laboratory Results - last 24 hr 07/11/21 07/11/21 07/11/21 Range/Units 06:43 11:18 17:49 WBC (3.0-10.3) x10-3/uL RBC (3.60-5.20) x10(6)uL Hgb (11.4-15.5) g/dL Hct (34.2-48.2) % MCV (76.7-100.5) fL MCH (23.9-33.9) pg MCHC (31.9-34.8) g/dL RDW (12.3-16.5) % Plt Count (151-488) x10(3)uL MPV (7.1-12.4) fL Neut % (Auto) (30.8-76.2) % Lymph % (Auto) (18.4-52.1) % [place] % (Auto) (4.4-15.7) % Eos % (Auto) (0.6-8.1) % Baso % (Auto) (0.2-1.5) % Neut # (Auto) (1.5-6.3) x10-3/uL Lymph # (Auto) (1.0-4.4) x10-3/uL [place] # (Auto) (0.3-1.0) x10-3/uL Eos # (Auto) (0.0-0.8) x10-3/uL Baso # (Auto) (0.0-0.1) x10-3/uL Sodium (135-145) mmol/L Potassium (3.5-5.3) mmol/L Chloride (100-110) mmol/L Carbon Dioxide (21-32) mmol/L BUN (7-18) mg/dL Creatinine (0.55-1.02) mg/dL Est Cr Clr Drug Dosing mL/min Estimated GFR (MDRD) (>60) BUN/Creatinine Ratio (9-20) Glucose (80-116) mg/dL POC Glucose 231 H D 252 H (80-116) mg/dL Lactic Acid (0.4-2.0) mmol/L Calcium (8.6-10.2) mg/dL Total Bilirubin (0.1-1.3) mg/dL AST (5-25) IU/L ALT (12-36) U/L Alkaline Phosphatase (56-112) IU/L C-Reactive Protein (0.5-0.9) mg/dL Total Protein (6.0-8.0) g/dL Albumin (3.2-4.6) g/dL Globulin g/dL Albumin/Globulin Ratio Blood Type A NEGATIVE Gel Antibody Screen Negative Crossmatch See Detail 07/11/21 07/12/21 07/12/21 Range/Units 20:20 06:30 06:30 WBC 8.2 (3.0-10.3) x10-3/uL RBC 2.80 L (3.60-5.20) x10(6)uL Hgb 8.4 L (11.4-15.5) g/dL Hct 24.5 L (34.2-48.2) % MCV 87.6 (76.7-100.5) fL MCH 29.9 (23.9-33.9) pg MCHC 34.1 (31.9-34.8) g/dL RDW 13.2 (12.3-16.5) % Plt Count 456 (151-488) x10(3)uL MPV 7.1 (7.1-12.4) fL Neut % (Auto) 79.0 H (30.8-76.2) % Lymph % (Auto) 12.0 L (18.4-52.1) % [place] % (Auto) 6.4 (4.4-15.7) % Eos % (Auto) 1.9 (0.6-8.1) % Baso % (Auto) 0.7 (0.2-1.5) % Neut # (Auto) 6.5 H (1.5-6.3) x10-3/uL Lymph # (Auto) 1.0 (1.0-4.4) x10-3/uL [place] # (Auto) 0.5 (0.3-1.0) x10-3/uL Eos # (Auto) 0.2 (0.0-0.8) x10-3/uL Baso # (Auto) 0.1 (0.0-0.1) x10-3/uL Sodium 134 L (135-145) mmol/L Potassium 2.9 L (3.5-5.3) mmol/L Chloride 98 L (100-110) mmol/L Carbon Dioxide 29 (21-32) mmol/L BUN 8 (7-18) mg/dL Creatinine 0.8 (0.55-1.02) mg/dL Est Cr Clr Drug Dosing 62.15 mL/min Estimated GFR (MDRD) > 60 (>60) BUN/Creatinine Ratio 10.0 (9-20) Glucose 254 H D (80-116) mg/dL POC Glucose 323 H (80-116) mg/dL Lactic Acid (0.4-2.0) mmol/L Calcium 7.9 L (8.6-10.2) mg/dL Total Bilirubin 0.6 (0.1-1.3) mg/dL AST 22 (5-25) IU/L ALT 24 D (12-36) U/L Alkaline Phosphatase 115 H (56-112) IU/L C-Reactive Protein (0.5-0.9) mg/dL Total Protein 4.8 L (6.0-8.0) g/dL Albumin 1.5 L* (3.2-4.6) g/dL Globulin 3.3 g/dL Albumin/Globulin Ratio 0.5 Blood Type Gel Antibody Screen Crossmatch 07/12/21 07/12/21 Range/Units 06:30 06:30 WBC (3.0-10.3) x10-3/uL RBC (3.60-5.20) x10(6)uL Hgb (11.4-15.5) g/dL Hct (34.2-48.2) % MCV (76.7-100.5) fL MCH (23.9-33.9) pg MCHC (31.9-34.8) g/dL RDW (12.3-16.5) % Plt Count (151-488) x10(3)uL MPV (7.1-12.4) fL Neut % (Auto) (30.8-76.2) % Lymph % (Auto) (18.4-52.1) % [place] % (Auto) (4.4-15.7) % Eos % (Auto) (0.6-8.1) % Baso % (Auto) (0.2-1.5) % Neut # (Auto) (1.5-6.3) x10-3/uL Lymph # (Auto) (1.0-4.4) x10-3/uL [place] # (Auto) (0.3-1.0) x10-3/uL Eos # (Auto) (0.0-0.8) x10-3/uL Baso # (Auto) (0.0-0.1) x10-3/uL Sodium (135-145) mmol/L Potassium (3.5-5.3) mmol/L Chloride (100-110) mmol/L Carbon Dioxide (21-32) mmol/L BUN (7-18) mg/dL Creatinine (0.55-1.02) mg/dL Est Cr Clr Drug Dosing mL/min Estimated GFR (MDRD) (>60) BUN/Creatinine Ratio (9-20) Glucose (80-116) mg/dL POC Glucose (80-116) mg/dL Lactic Acid 1.0 (0.4-2.0) mmol/L Calcium (8.6-10.2) mg/dL Total Bilirubin (0.1-1.3) mg/dL AST (5-25) IU/L ALT (12-36) U/L Alkaline Phosphatase (56-112) IU/L C-Reactive Protein 18.1 H* (0.5-0.9) mg/dL Total Protein (6.0-8.0) g/dL Albumin (3.2-4.6) g/dL Globulin g/dL Albumin/Globulin Ratio Blood Type Gel Antibody Screen Crossmatch Result Diagrams: 07/12/21 06:30 07/12/21 06:30 Magan Results Last 24 hrs: Microbiology 07/10/21 16:00 Aerobic Blood Culture - Preliminary Blood - Venous - Lab Draw NO GROWTH AFTER 1 DAY Anaerobic Blood Culture - Preliminary NO GROWTH AFTER 1 DAY 07/10/21 14:35 Aerobic Blood Culture - Preliminary Blood - Venous NO GROWTH AFTER 1 DAY Anaerobic Blood Culture - Preliminary NO GROWTH AFTER 1 DAY Sepsis Event Note - Evaluation Sepsis Screening Result: Possible Sepsis Risk - Focused Exam Vital Signs: Vital Signs Temp Pulse Resp BP Pulse Ox 07/12/21 06:15 99.4 F 97 16 128/54 L 96 - Problem List & Annotations (1) Prosthetic hip infection SNOMED Code(s): 881005151 Code(s): T84.59XA - INFECT/INFLM REACTION DUE TO OTH INTERNAL JOINT PROSTH, I NIT; Z96.649 - PRESENCE OF UNSPECIFIED ARTIFICIAL HIP JOINT Status: Acute Current Visit: Yes Qualifiers: Encounter type: initial encounter Qualified Code(s): T84.59XA - Infection and inflammatory reaction due to other internal joint prosthesis, initial encounter; Z96.649 - Presence of unspecified artificial hip joint (2) History of total hip replacement SNOMED Code(s): 403920823783, 371061739114 Code(s): Z96.649 - PRESENCE OF UNSPECIFIED ARTIFICIAL HIP JOINT Status: Acute Current Visit: Yes Qualifiers: Laterality: right Qualified Code(s): Z96.641 - Presence of right artificial hip joint (3) Uncontrolled type 2 diabetes mellitus SNOMED Code(s): 738445650, 992638987 Code(s): E11.65 - TYPE 2 DIABETES MELLITUS WITH HYPERGLYCEMIA Status: Acute Current Visit: Yes Qualifiers: Glycemic state: with hyperglycemia Qualified Code(s): E11.65 - Type 2 diabetes mellitus with hyperglycemia (4) Obesity SNOMED Code(s): 604023767, 798178094 Code(s): E66.9 - OBESITY, UNSPECIFIED Status: Acute Current Visit: Yes Qualifiers: Obesity type: due to excess calories (5) Hypotension SNOMED Code(s): 77223677 Code(s): I95.9 - HYPOTENSION, UNSPECIFIED Status: Acute Current Visit: Yes (6) Anemia SNOMED Code(s): 958957385 Code(s): D64.9 - ANEMIA, UNSPECIFIED Status: Acute Current Visit: Yes (7) Cellulitis SNOMED Code(s): 694634009 Code(s): L03.90 - CELLULITIS, UNSPECIFIED Status: Acute Current Visit: Yes (8) Hyponatremia SNOMED Code(s): 42751654 Code(s): E87.1 - HYPO-OSMOLALITY AND HYPONATREMIA Status: Acute Current Visit: Yes - Problem List Review Problem List Initiated/Reviewed/Updated: Yes - My Orders Last 24 Hours: My Active Orders 07/11/21 08:55 Transfuse Red Blood Cells [COMM] Routine 07/11/21 08:58 Acetaminophen [Tylenol Arthritis Pain] 650 mg PO Q8H PRN Nystatin [Nystop] 0 gm TOP BID PRN 07/11/21 09:00 Ascorbic Acid [Vitamin C] 500 mg PO DAILY Aspirin [Ecotrin] 325 mg PO DAILY Gabapentin [Neurontin] 300 mg PO BID Multivitamins [Tab-A-Sherman] 1 tab PO DAILY Sodium Chloride 0.9% [Normal Saline] 250 ml IV ASDIRECTED 07/11/21 09:15 Pharmacy to Dose - Vancomycin 1 dose .XX ASDIRECTED 07/11/21 09:30 Cholecalciferol (Vitamin D3) [Vitamin D3] 25 mcg PO DAILY Lutein 20 mg PO DAILY 07/11/21 12:00 Insulin Lispro [HumaLOG] See Protocol SUBCUT TIDMEALS 07/11/21 15:00 Telemetry Monitoring [Cardiac Monitoring] [RC] 08,16,00 07/11/21 15:12 Intake and Output [RC] 06,14,22 07/11/21 21:00 Insulin Glarg,Human.Rec.Analog [LantUS Solostar] 50 units SUBCUT BEDTIME Rosuvastatin [Crestor] 5 mg PO BEDTIME VANCOmycin 1.5 GM/300 ML 300 ml IV Q12H traZODone 50 mg PO BEDTIME 07/12/21 20:30 VANCOMYCIN TROUGH [CHEM] Routine 07/13/21 05:11 BASIC METABOLIC PANEL,BMP [CHEM] AM CBC WITH AUTO DIFF [HEME] AM CRP [C-REACTIVE PROTEIN] [CHEM] AM 07/13/21 08:00 metFORMIN [Glucophage] 1,000 mg PO WITHBREAKFAST 07/13/21 18:00 metFORMIN [Glucophage] 500 mg PO WITHDINNER - Plan Plan:: She's had problems with IV access. She is on IV vancomycin and Rocephin at this time. I discussed transfer, and I'm still waiting for bed availability at [facility]. She needs debridement.
[2021-07-12] MEDS: VANCOmycin 1.5 GM/300 ML 300 ML IV SCH (09:37)
[2021-07-12] MEDS ORDERED: Heparin Sodium 10 Units/ML 5 ML Syringe FLUSH ONE (14:36)
--- NOTE | 2021-07-12 15:37 | PCM.OPNOTE ---
- General Post-Op/Procedure Note Date of Surgery/Procedure: 07/12/21 Operative Procedure(s): Insertion of Right Subclavian Central Venous Catheter Findings: Tip of catheter in Superior Vena Cava with good blood return Pre Op Diagnosis: Right Hip infection with poor peripheral venous access Post-Op Diagnosis: Same Anesthesia Technique: Local Primary Surgeon: Ney Gonzalez Pathology: none EBL in mLs: 10 Complications: None Condition: Fair Free Text/Narrative:: Intake & Output 07/12/21 07/12/21 07/12/21 06:59 14:59 22:59 Intake Total 1500 2610 Output Total 800 700 Balance 700 1910
[2021-07-12] MEDS: cefTRIAXone 1 GM Vial IVPUSH SCH (15:45)
[2021-07-12] MEDS: Sodium Chloride 0.9% 10 ML Syringe FLUSH PRN (15:50)
[2021-07-12] MEDS: Heparin Sodium 10 Units/ML 5 ML Syringe FLUSH SCH ×3 (15:56→23:50)
[2021-07-12] MEDS: Diltiazem 120 MG Cap.CD PO SCH (18:56)
--- NOTE | 2021-07-12 19:06 | OR ---
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 OPERATION PERFORMED: Insertion of central venous line. INDICATIONS FOR SURGERY: This 65-year-old female underwent a right hip replacement a few days ago. She has findings consistent with an infection in the area of the wound and is requiring aggressive IV antibiotic therapy. She has poor peripheral venous access and central venous line is requested. PROCEDURE IN DETAIL: After consent was obtained, the right anterior shoulder is sterilely prepped and draped and the right infraclavicular space is infiltrated with Xylocaine. An aspirating needle was then carefully advanced from the right infraclavicular space toward the sternal notch and on the first pass the right subclavian vein was entered with good venous blood return. A guidewire was advanced through this needle and it passed easily. The needle was removed and a vein dilator was passed. Then, after removal of the vein dilator, the triple- lumen central venous line was advanced over the guidewire. After removal of the guidewire, there was good aspiration of blood through the distal port of the central venous catheter and all of the lines had already been irrigated with heparin. A postprocedure chest x-ray was taken that showed no evidence of complication, but the catheter was a little too far distal, so the catheter was withdrawn 2 cm and then secured in place by suturing it to the skin. The catheter was then dressed and the lines irrigated per nursing protocol. The patient tolerated the procedure well. ESTIMATED BLOOD LOSS: 10 mL. COMPLICATIONS: None. /[id number] JANETH/RHONDA
[2021-07-12] MEDS: Insulin Glargine,Human Rec. Analog 100 Units/ML 3 ML Pen SUBCUT SCH (20:16)
[2021-07-12] MEDS: Enoxaparin 40 MG/0.4 ML Syringe SUBCUT SCH (20:22)
[2021-07-12] MEDS: Rosuvastatin 10 MG Tab PO SCH (20:23)
[2021-07-12] MEDS: Latanoprost 0.005% Ophth Soln 2.5 ML Bottle EYEBOTH SCH (20:23)
[2021-07-12] MEDS: traZODone 50 MG Tab PO SCH (20:23)
[2021-07-12] MEDS: VANCOmycin 1.75 GM/350 ML 1.75 GM in Premix Bag 1 BAG IV SCH (21:38)
[2021-07-13] MEDS: Sodium Chloride 0.9% 1,000 ML IV SCH (01:46)
[2021-07-13] MEDS: Pantoprazole 40 MG Tab.CR PO SCH (06:38)
[2021-07-13] MEDS: Sodium Chloride 0.9% 10 ML Syringe FLUSH PRN ×4 (07:39→17:00)
[2021-07-13] MEDS: Heparin Sodium 10 Units/ML 5 ML Syringe FLUSH SCH ×3 (07:40→23:00)
[2021-07-13] MEDS: metFORMIN 1,000 MG Tab PO SCH (08:05)
[2021-07-13] MEDS: Insulin Lispro 100 Unit/ML 3 ML KwikPen SUBCUT SCH ×3 (08:15→17:22)
[2021-07-13] MEDS: Aspirin 325 MG Tab.EC PO SCH (08:17)
[2021-07-13] MEDS: Gabapentin 300 MG Cap PO SCH ×2 (08:17→20:43)
[2021-07-13] MEDS: Diltiazem 120 MG Cap.CD PO SCH (08:17)
[2021-07-13] MEDS: Carboxymethylcellulose 0.5%/Glycerin 0.9% Ophth Soln 15 ML Bottle EYELF SCH ×2 (08:18→20:42)
[2021-07-13] MEDS: Multivitamin Tab PO SCH (08:18)
[2021-07-13] MEDS: Cholecalciferol (Vitamin D3) 25 MCG Tab PO SCH (08:19)
[2021-07-13] MEDS: Ascorbic Acid 500 MG Tab PO SCH (08:19)
[2021-07-13] MEDS: VANCOmycin 1.75 GM/350 ML 1.75 GM in Premix Bag 1 BAG IV SCH ×2 (08:23→21:15)
--- NOTE | 2021-07-13 08:46 | PCM.PN ---
- General Info Date of Service: 07/13/21 Subjective Update: Karla has no new complaints,except constipation. The wound still draining copious amounts of pus.Was noted to have irregular,heart beat yesterday,got Cardizem,at 120 mg ( half her home dose)Was IV access obtained. Functional Status: Reports: Pain Controlled, Tolerating Diet - Review of Systems Cardiovascular: Reports: Palpitations Gastrointestinal: Reports: Constipation - Patient Data Vitals - Most Recent: Last Vital Signs Temp 98.2 F 07/13/21 07:58 Pulse 86 07/13/21 08:17 Resp 18 07/13/21 07:58 BP 130/71 07/13/21 08:17 Pulse Ox 96 07/13/21 07:58 Weight - Most Recent: 112.718 kg I&O - Last 24 Hours: Intake & Output 07/12/21 07/13/21 07/13/21 22:59 06:59 14:59 Intake Total 2127 1175 Output Total 1450 850 Balance 677 325 Lab Results Last 24 Hours: Laboratory Results - last 24 hr 07/12/21 07/12/21 07/12/21 Range/Units 11:01 17:39 20:08 WBC (3.0-10.3) x10-3/uL RBC (3.60-5.20) x10(6)uL Hgb (11.4-15.5) g/dL Hct (34.2-48.2) % MCV (76.7-100.5) fL MCH (23.9-33.9) pg MCHC (31.9-34.8) g/dL RDW (12.3-16.5) % Plt Count (151-488) x10(3)uL MPV (7.1-12.4) fL Neut % (Auto) (30.8-76.2) % Lymph % (Auto) (18.4-52.1) % [place] % (Auto) (4.4-15.7) % Eos % (Auto) (0.6-8.1) % Baso % (Auto) (0.2-1.5) % Neut # (Auto) (1.5-6.3) x10-3/uL Lymph # (Auto) (1.0-4.4) x10-3/uL [place] # (Auto) (0.3-1.0) x10-3/uL Eos # (Auto) (0.0-0.8) x10-3/uL Baso # (Auto) (0.0-0.1) x10-3/uL Sodium (135-145) mmol/L Potassium (3.5-5.3) mmol/L Chloride (100-110) mmol/L Carbon Dioxide (21-32) mmol/L BUN (7-18) mg/dL Creatinine (0.55-1.02) mg/dL Est Cr Clr Drug Dosing mL/min Estimated GFR (MDRD) (>60) BUN/Creatinine Ratio (9-20) Glucose (80-116) mg/dL POC Glucose 280 H 363 H D 378 H (80-116) mg/dL Calcium (8.6-10.2) mg/dL C-Reactive Protein (0.5-0.9) mg/dL Vancomycin Trough (<0.8) ug/mL 07/12/21 07/13/21 07/13/21 Range/Units 20:40 06:25 06:25 WBC 5.3 (3.0-10.3) x10-3/uL RBC 2.74 L (3.60-5.20) x10(6)uL Hgb 8.2 L (11.4-15.5) g/dL Hct 24.5 L (34.2-48.2) % MCV 89.4 (76.7-100.5) fL MCH 29.8 (23.9-33.9) pg MCHC 33.3 (31.9-34.8) g/dL RDW 13.1 (12.3-16.5) % Plt Count 512 H (151-488) x10(3)uL MPV 7.1 (7.1-12.4) fL Neut % (Auto) 63.1 (30.8-76.2) % Lymph % (Auto) 23.1 (18.4-52.1) % [place] % (Auto) 8.1 (4.4-15.7) % Eos % (Auto) 4.7 (0.6-8.1) % Baso % (Auto) 1.0 (0.2-1.5) % Neut # (Auto) 3.4 (1.5-6.3) x10-3/uL Lymph # (Auto) 1.2 (1.0-4.4) x10-3/uL [place] # (Auto) 0.4 (0.3-1.0) x10-3/uL Eos # (Auto) 0.3 (0.0-0.8) x10-3/uL Baso # (Auto) 0.1 (0.0-0.1) x10-3/uL Sodium 139 (135-145) mmol/L Potassium 3.2 L (3.5-5.3) mmol/L Chloride 103 D (100-110) mmol/L Carbon Dioxide 31 (21-32) mmol/L BUN 5 L (7-18) mg/dL Creatinine 0.6 (0.55-1.02) mg/dL Est Cr Clr Drug Dosing 82.87 mL/min Estimated GFR (MDRD) > 60 (>60) BUN/Creatinine Ratio 8.3 L (9-20) Glucose 252 H (80-116) mg/dL POC Glucose (80-116) mg/dL Calcium 8.1 L (8.6-10.2) mg/dL C-Reactive Protein (0.5-0.9) mg/dL Vancomycin Trough 13.2 H (<0.8) ug/mL 07/13/21 Range/Units 06:25 WBC (3.0-10.3) x10-3/uL RBC (3.60-5.20) x10(6)uL Hgb (11.4-15.5) g/dL Hct (34.2-48.2) % MCV (76.7-100.5) fL MCH (23.9-33.9) pg MCHC (31.9-34.8) g/dL RDW (12.3-16.5) % Plt Count (151-488) x10(3)uL MPV (7.1-12.4) fL Neut % (Auto) (30.8-76.2) % Lymph % (Auto) (18.4-52.1) % [place] % (Auto) (4.4-15.7) % Eos % (Auto) (0.6-8.1) % Baso % (Auto) (0.2-1.5) % Neut # (Auto) (1.5-6.3) x10-3/uL Lymph # (Auto) (1.0-4.4) x10-3/uL [place] # (Auto) (0.3-1.0) x10-3/uL Eos # (Auto) (0.0-0.8) x10-3/uL Baso # (Auto) (0.0-0.1) x10-3/uL Sodium (135-145) mmol/L Potassium (3.5-5.3) mmol/L Chloride (100-110) mmol/L Carbon Dioxide (21-32) mmol/L BUN (7-18) mg/dL Creatinine (0.55-1.02) mg/dL Est Cr Clr Drug Dosing mL/min Estimated GFR (MDRD) (>60) BUN/Creatinine Ratio (9-20) Glucose (80-116) mg/dL POC Glucose (80-116) mg/dL Calcium (8.6-10.2) mg/dL C-Reactive Protein 14.6 H* (0.5-0.9) mg/dL Vancomycin Trough (<0.8) ug/mL Magan Results Last 24 Hours: Microbiology 07/10/21 16:00 Aerobic Blood Culture - Preliminary Blood - Venous - Lab Draw NO GROWTH AFTER 2 DAYS Anaerobic Blood Culture - Preliminary NO GROWTH AFTER 2 DAYS 07/10/21 14:35 Aerobic Blood Culture - Preliminary Blood - Venous NO GROWTH AFTER 2 DAYS Anaerobic Blood Culture - Preliminary NO GROWTH AFTER 2 DAYS Med Orders - Current: Current Medications Acetaminophen (Acetaminophen 650 Mg Tab.Er) 650 mg PO Q8H PRN PRN Reason: Pain Ascorbic Acid (Ascorbic Acid 500 Mg Tab) 500 mg PO DAILY [facility] Last Admin: 07/13/21 08:19 Dose: 500 mg Documented by: Aspirin (Aspirin 325 Mg Tab.Ec) 325 mg PO DAILY [facility] Last Admin: 07/13/21 08:17 Dose: 325 mg Documented by: Carboxymethylcellulose (Carboxymethylcellulose 0.5%/Glycerin 0.9% Ophth Soln 15 Ml Bottle) 0 ml EYELF BID [facility] Last Admin: 07/13/21 08:18 Dose: 1 drop Documented by: Ceftriaxone Sodium (Ceftriaxone 1 Gm Vial) 1 gm IVPUSH Q24H [facility] Last Admin: 07/12/21 15:45 Dose: 1 gm Documented by: Cholecalciferol (Cholecalciferol (Vitamin D3) 25 Mcg Tab) 25 mcg PO DAILY [facility] Last Admin: 07/13/21 08:19 Dose: 25 mcg Documented by: Dextrose/Water (50% Dextrose In Water 50 Ml Syringe) 50 ml IVPUSH ASDIRECTED PRN PRN Reason: Hypoglycemia Diltiazem HCl (Diltiazem 120 Mg Cap.Cd) 120 mg PO DAILY [facility] Last Admin: 07/13/21 08:17 Dose: 120 mg Documented by: Enoxaparin Sodium (Enoxaparin 40 Mg/0.4 Ml Syringe) 40 mg SUBCUT Q24H [facility] Last Admin: 07/12/21 20:22 Dose: 40 mg Documented by: Gabapentin (Gabapentin 300 Mg Cap) 300 mg PO BID [facility] Last Admin: 07/13/21 08:17 Dose: 300 mg Documented by: Glucagon (Glucagon,Human Recombinant 1 Mg Vial) 1 mg IM ASDIRECTED PRN PRN Reason: Hypoglycemia Heparin Sodium (Porcine) (Heparin Sodium 10 Units/Ml 5 Ml Syringe) 50 unit FLUSH Q8H [facility] Last Admin: 07/13/21 07:40 Dose: 50 unit Documented by: Sodium Chloride (Normal Saline) 250 mls @ 100 mls/hr IV ASDIRECTED [facility] Vancomycin HCl 1.75 gm/ Premix 350 mls @ 200 mls/hr IV Q12H [facility] Last Admin: 07/13/21 08:23 Dose: 200 mls/hr Documented by: Insulin Glargine (Insulin Glargine,Human Rec. Analog 100 Units/Ml 3 Ml Pen) 50 units SUBCUT BEDTIME [facility] Last Admin: 07/12/21 20:16 Dose: 50 units Documented by: Insulin Human Lispro (Insulin Lispro 100 Unit/Ml 3 Ml Kwikpen) 0 unit SUBCUT TIDMEALS [facility]; Protocol Last Admin: 07/13/21 08:15 Dose: 6 units Documented by: Latanoprost (Latanoprost 0.005% Ophth Soln 2.5 Ml Bottle) 0 ml EYEBOTH BEDTIME [facility] Last Admin: 07/12/21 20:23 Dose: 1 drop Documented by: Lutein (Lutein 10 Mg Tab) 20 mg PO DAILY [facility] Last Admin: 07/13/21 08:18 Dose: 20 mg Documented by: Metformin HCl (Metformin 1,000 Mg Tab) 1,000 mg PO WITHBREAKFAST [facility] Last Admin: 07/13/21 08:05 Dose: 1,000 mg Documented by: Metformin HCl (Metformin 500 Mg Tab) 500 mg PO WITHDINNER [facility] Morphine Sulfate (Morphine 4 Mg/Ml Vial) 4 mg IVPUSH Q2H PRN PRN Reason: Pain Multivitamins/Minerals/Vitamin C (Multivitamin Tab) 1 tab PO DAILY [facility] Last Admin: 07/13/21 08:18 Dose: 1 tab Documented by: Nystatin (Nystatin Topical Powder 15 Gm Bottle) 0 gm TOP BID PRN PRN Reason: Rash Ondansetron HCl (Ondansetron 4 Mg/2 Ml Sdv) 4 mg IVPUSH Q4H PRN PRN Reason: Nausea/Vomiting Oxycodone/Acetaminophen (Acetaminophen/Oxycodone 325-5 Mg Tab) 1 tab PO Q4H PRN PRN Reason: Pain (moderate 4-6) Last Admin: 07/12/21 21:40 Dose: 1 tab Documented by: Oxycodone/Acetaminophen (Acetaminophen/Oxycodone 325-5 Mg Tab) 2 tab PO Q4H PRN PRN Reason: SEVERE PAIN Last Admin: 07/10/21 21:55 Dose: 2 tab Documented by: Pantoprazole Sodium (Pantoprazole 40 Mg Tab.Cr) 40 mg PO ACBREAKFAST [facility] Last Admin: 07/13/21 06:38 Dose: 40 mg Documented by: Polyethylene Glycol (Polyethylene Glycol 3350 Powder 17 Gm Packet) 17 gm PO DAILY [facility] Rosuvastatin Calcium (Rosuvastatin 10 Mg Tab) 5 mg PO BEDTIME [facility] Last Admin: 07/12/21 20:23 Dose: 5 mg Documented by: Senna/Docusate Sodium (Docusate Sodium/Sennosides 50-8.6 Mg Tab) 1 tab PO BID PRN PRN Reason: Constipation Last Admin: 07/12/21 22:12 Dose: 1 tab Documented by: Sodium Chloride (Sodium Chloride 0.9% 10 Ml Syringe) 10 ml FLUSH ASDIRECTED PRN PRN Reason: Keep Vein Open Last Admin: 07/13/21 07:39 Dose: 10 ml Documented by: Trazodone HCl (Trazodone 50 Mg Tab) 50 mg PO BEDTIME [facility] Last Admin: 07/12/21 20:23 Dose: 50 mg Documented by: Vancomycin HCl (Pharmacy To Dose - Vancomycin) 1 dose .XX ASDIRECTED [facility] Discontinued Medications Alprazolam (Alprazolam 0.5 Mg Tab) 0.5 mg PO DAILY PRN PRN Reason: Anxiety Ceftriaxone Sodium (Ceftriaxone 2 Gm Vial) 2 gm IVPUSH NOW STA Stop: 07/10/21 13:46 Last Admin: 07/10/21 14:30 Dose: 1 gm Documented by: Dextrose/Water (50% Dextrose In Water 50 Ml Syringe) 50 ml IVPUSH ASDIRECTED PRN PRN Reason: Hypoglycemia Flecainide Acetate (Flecainide 100 Mg Tab) 75 mg PO BID [facility] Last Admin: 07/10/21 22:24 Dose: Not Given Documented by: Glucagon (Glucagon,Human Recombinant 1 Mg Vial) 1 mg IM ASDIRECTED PRN PRN Reason: Hypoglycemia Heparin Sodium (Porcine) (Heparin Sodium 10 Units/Ml 5 Ml Syringe) Confirm Administered Dose 150 unit FLUSH .STK-MED ONE Stop: 07/12/21 14:37 Last Admin: 07/12/21 15:20 Dose: 150 unit Documented by: Sodium Chloride (Normal Saline) 1,000 mls [facility] Admin: 07/10/21 13:10 Dose: 500 mls/hr Documented by: Sodium Chloride (Normal Saline) 1,000 mls @ 150 mls/hr IV ASDIRECTED [facility] Last Admin: 07/13/21 01:46 Dose: 150 mls/hr Documented by: Vancomycin HCl 2 gm/ Premix 400 mls @ 200 mls/hr IV ONETIME ONE Stop: 07/11/21 10:59 Last Admin: 07/11/21 10:12 Dose: 200 mls/hr Documented by: Vancomycin HCl (Vancomycin 1.5 Gm/300 Ml) 300 mls @ 200 mls/hr IV Q12H [facility] Last Admin: 07/12/21 09:37 Dose: 200 mls/hr Documented by: Insulin Human Lispro (Insulin Lispro 100 Unit/Ml 3 Ml Kwikpen) 7 unit SUBCUT TIDMEALS [facility] Last Admin: 07/11/21 08:38 Dose: 7 units Documented by: Insulin Human Lispro (Insulin Lispro 100 Unit/Ml 3 Ml Kwikpen) 10 unit SUBCUT ONETIME ONE Stop: 07/10/21 21:46 Last Admin: 07/10/21 21:45 Dose: 10 units Documented by: Insulin Human Lispro (Insulin Lispro 100 Unit/Ml 3 Ml Kwikpen) 10 unit SUBCUT ONETIME ONE Stop: 07/10/21 23:31 Last Admin: 07/10/21 23:35 Dose: 10 units Documented by: Iopamidol (Iopamidol 755 Mg/Ml 100 Ml Bottle) 100 ml IV . DIRECTED ONE Stop: 07/10/21 13:59 Last Admin: 07/10/21 14:51 Dose: 90 ml Documented by: Meloxicam (Meloxicam 15 Mg Tab) 15 mg PO DAILY [facility] Morphine Sulfate (Morphine 4 Mg/Ml Vial) 4 mg IVPUSH NOW STA Stop: 07/10/21 13:14 Last Admin: 07/10/21 13:16 Dose: 4 mg Documented by: Ondansetron HCl (Ondansetron 4 Mg/2 Ml Sdv) 4 mg IVPUSH NOW STA Stop: 07/10/21 13:46 Last Admin: 07/10/21 14:28 Dose: 4 mg Documented by: Simvastatin (Simvastatin 10 Mg Tab) 10 mg PO BEDTIME [facility] Last Admin: 07/10/21 21:48 Dose: 10 mg Documented by: - Exam General: Alert, Oriented HEENT: Pupils Equal Lungs: Clear to Auscultation GI/Abdominal Exam: Normal Bowel Sounds Skin: Warm - Patient Data Lab Results Last 24 hrs: Laboratory Results - last 24 hr 07/12/21 07/12/21 07/12/21 Range/Units 11:01 17:39 20:08 WBC (3.0-10.3) x10-3/uL RBC (3.60-5.20) x10(6)uL Hgb (11.4-15.5) g/dL Hct (34.2-48.2) % MCV (76.7-100.5) fL MCH (23.9-33.9) pg MCHC (31.9-34.8) g/dL RDW (12.3-16.5) % Plt Count (151-488) x10(3)uL MPV (7.1-12.4) fL Neut % (Auto) (30.8-76.2) % Lymph % (Auto) (18.4-52.1) % [place] % (Auto) (4.4-15.7) % Eos % (Auto) (0.6-8.1) % Baso % (Auto) (0.2-1.5) % Neut # (Auto) (1.5-6.3) x10-3/uL Lymph # (Auto) (1.0-4.4) x10-3/uL [place] # (Auto) (0.3-1.0) x10-3/uL Eos # (Auto) (0.0-0.8) x10-3/uL Baso # (Auto) (0.0-0.1) x10-3/uL Sodium (135-145) mmol/L Potassium (3.5-5.3) mmol/L Chloride (100-110) mmol/L Carbon Dioxide (21-32) mmol/L BUN (7-18) mg/dL Creatinine (0.55-1.02) mg/dL Est Cr Clr Drug Dosing mL/min Estimated GFR (MDRD) (>60) BUN/Creatinine Ratio (9-20) Glucose (80-116) mg/dL POC Glucose 280 H 363 H D 378 H (80-116) mg/dL Calcium (8.6-10.2) mg/dL C-Reactive Protein (0.5-0.9) mg/dL Vancomycin Trough (<0.8) ug/mL 07/12/21 07/13/21 07/13/21 Range/Units 20:40 06:25 06:25 WBC 5.3 (3.0-10.3) x10-3/uL RBC 2.74 L (3.60-5.20) x10(6)uL Hgb 8.2 L (11.4-15.5) g/dL Hct 24.5 L (34.2-48.2) % MCV 89.4 (76.7-100.5) fL MCH 29.8 (23.9-33.9) pg MCHC 33.3 (31.9-34.8) g/dL RDW 13.1 (12.3-16.5) % Plt Count 512 H (151-488) x10(3)uL MPV 7.1 (7.1-12.4) fL Neut % (Auto) 63.1 (30.8-76.2) % Lymph % (Auto) 23.1 (18.4-52.1) % [place] % (Auto) 8.1 (4.4-15.7) % Eos % (Auto) 4.7 (0.6-8.1) % Baso % (Auto) 1.0 (0.2-1.5) % Neut # (Auto) 3.4 (1.5-6.3) x10-3/uL Lymph # (Auto) 1.2 (1.0-4.4) x10-3/uL [place] # (Auto) 0.4 (0.3-1.0) x10-3/uL Eos # (Auto) 0.3 (0.0-0.8) x10-3/uL Baso # (Auto) 0.1 (0.0-0.1) x10-3/uL Sodium 139 (135-145) mmol/L Potassium 3.2 L (3.5-5.3) mmol/L Chloride 103 D (100-110) mmol/L Carbon Dioxide 31 (21-32) mmol/L BUN 5 L (7-18) mg/dL Creatinine 0.6 (0.55-1.02) mg/dL Est Cr Clr Drug Dosing 82.87 mL/min Estimated GFR (MDRD) > 60 (>60) BUN/Creatinine Ratio 8.3 L (9-20) Glucose 252 H (80-116) mg/dL POC Glucose (80-116) mg/dL Calcium 8.1 L (8.6-10.2) mg/dL C-Reactive Protein (0.5-0.9) mg/dL Vancomycin Trough 13.2 H (<0.8) ug/mL 07/13/21 Range/Units 06:25 WBC (3.0-10.3) x10-3/uL RBC (3.60-5.20) x10(6)uL Hgb (11.4-15.5) g/dL Hct (34.2-48.2) % MCV (76.7-100.5) fL MCH (23.9-33.9) pg MCHC (31.9-34.8) g/dL RDW (12.3-16.5) % Plt Count (151-488) x10(3)uL MPV (7.1-12.4) fL Neut % (Auto) (30.8-76.2) % Lymph % (Auto) (18.4-52.1) % [place] % (Auto) (4.4-15.7) % Eos % (Auto) (0.6-8.1) % Baso % (Auto) (0.2-1.5) % Neut # (Auto) (1.5-6.3) x10-3/uL Lymph # (Auto) (1.0-4.4) x10-3/uL [place] # (Auto) (0.3-1.0) x10-3/uL Eos # (Auto) (0.0-0.8) x10-3/uL Baso # (Auto) (0.0-0.1) x10-3/uL Sodium (135-145) mmol/L Potassium (3.5-5.3) mmol/L Chloride (100-110) mmol/L Carbon Dioxide (21-32) mmol/L BUN (7-18) mg/dL Creatinine (0.55-1.02) mg/dL Est Cr Clr Drug Dosing mL/min Estimated GFR (MDRD) (>60) BUN/Creatinine Ratio (9-20) Glucose (80-116) mg/dL POC Glucose (80-116) mg/dL Calcium (8.6-10.2) mg/dL C-Reactive Protein 14.6 H* (0.5-0.9) mg/dL Vancomycin Trough (<0.8) ug/mL Result Diagrams: 07/13/21 06:25 07/13/21 06:25 Magan Results Last 24 hrs: Microbiology 07/10/21 16:00 Aerobic Blood Culture - Preliminary Blood - Venous - Lab Draw NO GROWTH AFTER 2 DAYS Anaerobic Blood Culture - Preliminary NO GROWTH AFTER 2 DAYS 07/10/21 14:35 Aerobic Blood Culture - Preliminary Blood - Venous NO GROWTH AFTER 2 DAYS Anaerobic Blood Culture - Preliminary NO GROWTH AFTER 2 DAYS Sepsis Event Note - Evaluation Sepsis Screening Result: No Definite Risk - Focused Exam Vital Signs: Vital Signs Temp Pulse Pulse Resp BP BP Pulse Ox 07/13/21 08:17 86 130/71 07/13/21 07:58 98.2 F 88 18 127/68 96 07/13/21 06:00 97.2 F 94 16 139/70 94 L 07/13/21 03:44 07/12/21 22:00 98.7 F 96 16 123/65 96 Pulse Ox 07/13/21 08:17 07/13/21 07:58 07/13/21 06:00 07/13/21 03:44 96 07/12/21 22:00 - Problem List & Annotations (1) Prosthetic hip infection SNOMED Code(s): 667665099 Code(s): T84.59XA - INFECT/INFLM REACTION DUE TO OTH INTERNAL JOINT PROSTH, INIT; Z96.649 - PRESENCE OF UNSPECIFIED ARTIFICIAL HIP JOINT Status: Acute Current Visit: Yes Qualifiers: Encounter type: initial encounter Qualified Code(s): T84.59XA - Infection and inflammatory reaction due to other internal joint prosthesis, initial encounter; Z96.649 - Presence of unspecified artificial hip joint (2) History of total hip replacement SNOMED Code(s): 249558337995, 479205569487 Code(s): Z96.649 - PRESENCE OF UNSPECIFIED ARTIFICIAL HIP JOINT Status: Acute Current Visit: Yes Qualifiers: Laterality: right Qualified Code(s): Z96.641 - Presence of right artificial hip joint (3) Uncontrolled type 2 diabetes mellitus SNOMED Code(s): 785041039, 989516423 Code(s): E11.65 - TYPE 2 DIABETES MELLITUS WITH HYPERGLYCEMIA Status: Acute Current Visit: Yes Qualifiers: Glycemic state: with hyperglycemia Qualified Code(s): E11.65 - Type 2 diabetes mellitus with hyperglycemia (4) Obesity SNOMED Code(s): 343156821, 907581416 Code(s): E66.9 - OBESITY, UNSPECIFIED Status: Acute Current Visit: Yes Qualifiers: Obesity type: due to excess calories (5) Hypotension SNOMED Code(s): 26565996 Code(s): I95.9 - HYPOTENSION, UNSPECIFIED Status: Acute Current Visit: Yes (6) Anemia SNOMED Code(s): 383890837 Code(s): D64.9 - ANEMIA, UNSPECIFIED Status: Acute Current Visit: Yes (7) Cellulitis SNOMED Code(s): 593073632 Code(s): L03.90 - CELLULITIS, UNSPECIFIED Status: Acute Current Visit: Yes (8) Hyponatremia SNOMED Code(s): 00313691 Code(s): E87.1 - HYPO-OSMOLALITY AND HYPONATREMIA Status: Acute Current Visit: Yes (9) Afib SNOMED Code(s): 86613481 Code(s): I48.91 - UNSPECIFIED ATRIAL FIBRILLATION Status: Acute Current Visit: Yes (10) Constipated SNOMED Code(s): 26483265 Code(s): K59.00 - CONSTIPATION, UNSPECIFIED Status: Acute Current Visit: Yes - Problem List Review Problem List Initiated/Reviewed/Updated: Yes - My Orders Last 24 Hours: My Active Orders 07/12/21 19:00 Diltiazem [Cardizem CD] 120 mg PO DAILY 07/12/21 21:00 VANCOmycin 1.75 GM/350 ML 1.75 gm Premix Bag 1 bag IV Q12H 07/13/21 08:00 metFORMIN [Glucophage] 1,000 mg PO WITHBREAKFAST 07/13/21 09:00 polyethylene glycoL 3350 [MiraLAX] 17 gm PO DAILY 07/13/21 18:00 metFORMIN [Glucophage] 500 mg PO WITHDINNER 07/14/21 05:11 BASIC METABOLIC PANEL,BMP [CHEM] AM CBC WITH AUTO DIFF [HEME] AM CRP [C-REACTIVE PROTEIN] [CHEM] AM 07/14/21 08:00 VANCOMYCIN TROUGH [CHEM] Timed - Plan Plan:: Continue with current IV antibiotic therapy. Discontinue IV fluids. Start MiraLAX when necessary for constipation. Repeat labs in the morning,. We continued to wait for transfer to [facility]
[2021-07-13] MEDS: Polyethylene Glycol 3350 Powder 17 GM Packet PO SCH (08:50)
[2021-07-13] MEDS: Heparin Sodium 10 Units/ML 5 ML Syringe FLUSH PRN ×2 (11:15→14:03)
[2021-07-13] MEDS: cefTRIAXone 1 GM Vial IVPUSH SCH (13:58)
[2021-07-13] MEDS: Acetaminophen/oxyCODONE 325-5 MG Tab PO PRN ×2 (17:05→23:15)
[2021-07-13] MEDS: metFORMIN 500 MG Tab PO SCH (17:06)
[2021-07-13] MEDS: Latanoprost 0.005% Ophth Soln 2.5 ML Bottle EYEBOTH SCH (20:42)
[2021-07-13] MEDS: Enoxaparin 40 MG/0.4 ML Syringe SUBCUT SCH (20:43)
[2021-07-13] MEDS: Rosuvastatin 10 MG Tab PO SCH (20:44)
[2021-07-13] MEDS: traZODone 50 MG Tab PO SCH (20:44)
[2021-07-13] MEDS: Insulin Glargine,Human Rec. Analog 100 Units/ML 3 ML Pen SUBCUT SCH (20:48)
[2021-07-13] MEDS ORDERED: Heparin Sodium 10 Units/ML 5 ML Syringe FLUSH ONE (22:08)
[2021-07-14] MEDS: Heparin Sodium 10 Units/ML 5 ML Syringe FLUSH SCH ×9 (00:05→23:52)
[2021-07-14] MEDS: Sodium Chloride 0.9% 10 ML Syringe FLUSH PRN ×5 (00:06→23:46)
[2021-07-14] MEDS: Pantoprazole 40 MG Tab.CR PO SCH ×2 (05:56→06:48)
[2021-07-14] MEDS: Heparin Sodium 10 Units/ML 5 ML Syringe FLUSH PRN ×3 (08:10→13:33)
[2021-07-14] MEDS: metFORMIN 1,000 MG Tab PO SCH (08:32)
[2021-07-14] MEDS: Diltiazem 120 MG Cap.CD PO SCH (08:33)
[2021-07-14] MEDS: Aspirin 325 MG Tab.EC PO SCH (08:34)
[2021-07-14] MEDS: Insulin Lispro 100 Unit/ML 3 ML KwikPen SUBCUT SCH ×3 (08:35→18:02)
[2021-07-14] MEDS: Ascorbic Acid 500 MG Tab PO SCH (08:35)
[2021-07-14] MEDS: Cholecalciferol (Vitamin D3) 25 MCG Tab PO SCH (08:35)
[2021-07-14] MEDS: Carboxymethylcellulose 0.5%/Glycerin 0.9% Ophth Soln 15 ML Bottle EYELF SCH ×2 (08:40→21:43)
[2021-07-14] MEDS: Multivitamin Tab PO SCH (08:40)
[2021-07-14] MEDS: Polyethylene Glycol 3350 Powder 17 GM Packet PO SCH (08:40)
[2021-07-14] MEDS: Gabapentin 300 MG Cap PO SCH ×2 (08:47→21:43)
[2021-07-14] MEDS: VANCOmycin 1.75 GM/350 ML 1.75 GM in Premix Bag 1 BAG IV SCH ×2 (08:51→21:47)
--- NOTE | 2021-07-14 08:56 | PCM.PN ---
- General Info Date of Service: 07/14/21 Subjective Update: Karla has no new complaints,except constipation. The wound still draining copious amounts of pus.Was noted to have irregular,heart beat yesterday,got Cardizem,at 120 mg ( half her home dose)Was IV access obtained. Functional Status: Reports: Pain Controlled - Review of Systems General: Reports: No Symptoms HEENT: Reports: No Symptoms Pulmonary: Reports: No Symptoms Cardiovascular: Reports: No Symptoms Gastrointestinal: Reports: No Symptoms - Patient Data Vitals - Most Recent: Last Vital Signs Temp 97.3 F 07/14/21 05:51 Pulse 87 07/14/21 08:33 Resp 18 07/14/21 05:51 BP 127/74 07/14/21 08:33 Pulse Ox 96 07/14/21 05:51 Weight - Most Recent: 115.836 kg I&O - Last 24 Hours: Intake & Output 07/13/21 07/14/21 07/14/21 22:59 06:59 14:59 Intake Total 1250 200 Output Total 1100 550 Balance 150 -350 Lab Results Last 24 Hours: Laboratory Results - last 24 hr 07/13/21 07/13/21 07/13/21 Range/Units 11:06 17:20 20:38 WBC (3.0-10.3) x10-3/uL RBC (3.60-5.20) x10(6)uL Hgb (11.4-15.5) g/dL Hct (34.2-48.2) % MCV (76.7-100.5) fL MCH (23.9-33.9) pg MCHC (31.9-34.8) g/dL RDW (12.3-16.5) % Plt Count (151-488) x10(3)uL MPV (7.1-12.4) fL Neut % (Auto) (30.8-76.2) % Lymph % (Auto) (18.4-52.1) % [place] % (Auto) (4.4-15.7) % Eos % (Auto) (0.6-8.1) % Baso % (Auto) (0.2-1.5) % Neut # (Auto) (1.5-6.3) x10-3/uL Lymph # (Auto) (1.0-4.4) x10-3/uL [place] # (Auto) (0.3-1.0) x10-3/uL Eos # (Auto) (0.0-0.8) x10-3/uL Baso # (Auto) (0.0-0.1) x10-3/uL Sodium (135-145) mmol/L Potassium (3.5-5.3) mmol/L Chloride (100-110) mmol/L Carbon Dioxide (21-32) mmol/L BUN (7-18) mg/dL Creatinine (0.55-1.02) mg/dL Est Cr Clr Drug Dosing mL/min Estimated GFR (MDRD) (>60) BUN/Creatinine Ratio (9-20) Glucose (80-116) mg/dL POC Glucose 260 H D 333 H 384 H (80-116) mg/dL Calcium (8.6-10.2) mg/dL C-Reactive Protein (0.5-0.9) mg/dL Vancomycin Trough (<0.8) ug/mL 07/14/21 07/14/21 07/14/21 Range/Units 05:37 08:00 08:00 WBC 5.2 (3.0-10.3) x10-3/uL RBC 3.12 L (3.60-5.20) x10(6)uL Hgb 9.1 L (11.4-15.5) g/dL Hct 28.2 L (34.2-48.2) % MCV 90.5 (76.7-100.5) fL MCH 29.2 (23.9-33.9) pg MCHC 32.3 (31.9-34.8) g/dL RDW 13.9 (12.3-16.5) % Plt Count 603 H (151-488) x10(3)uL MPV 6.8 L (7.1-12.4) fL Neut % (Auto) 60.4 (30.8-76.2) % Lymph % (Auto) 27.7 (18.4-52.1) % [place] % (Auto) 6.4 (4.4-15.7) % Eos % (Auto) 4.3 (0.6-8.1) % Baso % (Auto) 1.2 (0.2-1.5) % Neut # (Auto) 3.2 (1.5-6.3) x10-3/uL Lymph # (Auto) 1.4 (1.0-4.4) x10-3/uL [place] # (Auto) 0.3 (0.3-1.0) x10-3/uL Eos # (Auto) 0.2 (0.0-0.8) x10-3/uL Baso # (Auto) 0.1 (0.0-0.1) x10-3/uL Sodium (135-145) mmol/L Potassium (3.5-5.3) mmol/L Chloride (100-110) mmol/L Carbon Dioxide (21-32) mmol/L BUN (7-18) mg/dL Creatinine (0.55-1.02) mg/dL Est Cr Clr Drug Dosing mL/min Estimated GFR (MDRD) (>60) BUN/Creatinine Ratio (9-20) Glucose (80-116) mg/dL POC Glucose 207 H D (80-116) mg/dL Calcium (8.6-10.2) mg/dL C-Reactive Protein (0.5-0.9) mg/dL Vancomycin Trough 16.7 H (<0.8) ug/mL 07/14/21 07/14/21 Range/Units 08:00 08:00 WBC (3.0-10.3) x10-3/uL RBC (3.60-5.20) x10(6)uL Hgb (11.4-15.5) g/dL Hct (34.2-48.2) % MCV (76.7-100.5) fL MCH (23.9-33.9) pg MCHC (31.9-34.8) g/dL RDW (12.3-16.5) % Plt Count (151-488) x10(3)uL MPV (7.1-12.4) fL Neut % (Auto) (30.8-76.2) % Lymph % (Auto) (18.4-52.1) % [place] % (Auto) (4.4-15.7) % Eos % (Auto) (0.6-8.1) % Baso % (Auto) (0.2-1.5) % Neut # (Auto) (1.5-6.3) x10-3/uL Lymph # (Auto) (1.0-4.4) x10-3/uL [place] # (Auto) (0.3-1.0) x10-3/uL Eos # (Auto) (0.0-0.8) x10-3/uL Baso # (Auto) (0.0-0.1) x10-3/uL Sodium 139 (135-145) mmol/L Potassium 3.8 (3.5-5.3) mmol/L Chloride 103 (100-110) mmol/L Carbon Dioxide 32 (21-32) mmol/L BUN 7 (7-18) mg/dL Creatinine 0.7 (0.55-1.02) mg/dL Est Cr Clr Drug Dosing 71.03 mL/min Estimated GFR (MDRD) > 60 (>60) BUN/Creatinine Ratio 10.0 (9-20) Glucose 204 H (80-116) mg/dL POC Glucose (80-116) mg/dL Calcium 8.5 L (8.6-10.2) mg/dL C-Reactive Protein 8.6 H* (0.5-0.9) mg/dL Vancomycin Trough (<0.8) ug/mL Magan Results Last 24 Hours: Microbiology 07/10/21 16:00 Aerobic Blood Culture - Preliminary Blood - Venous - Lab Draw NO GROWTH AFTER 3 DAYS Anaerobic Blood Culture - Preliminary NO GROWTH AFTER 3 DAYS 07/10/21 14:35 Aerobic Blood Culture - Preliminary Blood - Venous NO GROWTH AFTER 3 DAYS Anaerobic Blood Culture - Preliminary NO GROWTH AFTER 3 DAYS Med Orders - Current: Current Medications Acetaminophen (Acetaminophen 650 Mg Tab.Er) 650 mg PO Q8H PRN PRN Reason: Pain Ascorbic Acid (Ascorbic Acid 500 Mg Tab) 500 mg PO DAILY [facility] Last Admin: 07/14/21 08:35 Dose: 500 mg Documented by: Aspirin (Aspirin 325 Mg Tab.Ec) 325 mg PO DAILY [facility] Last Admin: 07/14/21 08:34 Dose: 325 mg Documented by: Carboxymethylcellulose (Carboxymethylcellulose 0.5%/Glycerin 0.9% Oph Soln 15 Ml Bottle) 0 ml EYELF BID [facility] Last Admin: 07/14/21 08:40 Dose: 1 drop Documented by: Ceftriaxone Sodium (Ceftriaxone 1 Gm Vial) 1 gm IVPUSH Q24H [facility] Last Admin: 07/13/21 13:58 Dose: 1 gm Documented by: Cholecalciferol (Cholecalciferol (Vitamin D3) 25 Mcg Tab) 25 mcg PO DAILY [facility] Last Admin: 07/14/21 08:35 Dose: 25 mcg Documented by: Dextrose/Water (50% Dextrose In Water 50 Ml Syringe) 50 ml IVPUSH ASDIRECTED PRN PRN Reason: Hypoglycemia Diltiazem HCl (Diltiazem 120 Mg Cap.Cd) 120 mg PO DAILY [facility] Last Admin: 07/14/21 08:33 Dose: 120 mg Documented by: Enoxaparin Sodium (Enoxaparin 40 Mg/0.4 Ml Syringe) 40 mg SUBCUT Q24H [facility] Last Admin: 07/13/21 20:43 Dose: 40 mg Documented by: Gabapentin (Gabapentin 300 Mg Cap) 300 mg PO BID [facility] Last Admin: 07/14/21 08:47 Dose: 300 mg Documented by: Glucagon (Glucagon,Human Recombinant 1 Mg Vial) 1 mg IM ASDIRECTED PRN PRN Reason: Hypoglycemia Heparin Sodium (Porcine) (Heparin Sodium 10 Units/Ml 5 Ml Syringe) 50 unit FLUSH ASDIRECTED PRN PRN Reason: Flush Last Admin: 07/13/21 14:03 Dose: 50 unit Documented by: Heparin Sodium (Porcine) (Heparin Sodium 10 Units/Ml 5 Ml Syringe) 50 unit FLUSH Q8H [facility] Last Admin: 07/14/21 08:33 Dose: 50 unit Documented by: Sodium Chloride (Normal Saline) 250 mls @ 100 mls/hr IV ASDIRECTED MERVAT Vancomycin HCl 1.75 gm/ Premix 350 mls @ 200 mls/hr IV Q12H [facility] Last Admin: 07/14/21 08:51 Dose: 200 mls/hr Documented by: Insulin Glargine (Insulin Glargine,Human Rec. Analog 100 Units/Ml 3 Ml Pen) 50 units SUBCUT BEDTIME [facility] Last Admin: 07/13/21 20:48 Dose: 50 units Documented by: Insulin Human Lispro (Insulin Lispro 100 Unit/Ml 3 Ml Kwikpen) 0 unit SUBCUT TIDMEALS [facility]; Protocol Last Admin: 07/14/21 08:35 Dose: 4 units Documented by: Latanoprost (Latanoprost 0.005% Ophth Soln 2.5 Ml Bottle) 0 ml EYEBOTH BEDTIME [facility] Last Admin: 07/13/21 20:42 Dose: 1 drop Documented by: Lutein (Lutein 10 Mg Tab) 20 mg PO DAILY [facility] Last Admin: 07/14/21 08:34 Dose: 20 mg Documented by: Metformin HCl (Metformin 1,000 Mg Tab) 1,000 mg PO WITHBREAKFAST [facility] Last Admin: 07/14/21 08:32 Dose: 1,000 mg Documented by: Metformin HCl (Metformin 500 Mg Tab) 500 mg PO WITHDINNER [facility] Last Admin: 07/13/21 17:06 Dose: 500 mg Documented by: Morphine Sulfate (Morphine 4 Mg/Ml Vial) 4 mg IVPUSH Q2H PRN PRN Reason: Pain Multivitamins/Minerals/Vitamin C (Multivitamin Tab) 1 tab PO DAILY [facility] Last Admin: 07/14/21 08:40 Dose: 1 tab Documented by: Nystatin (Nystatin Topical Powder 15 Gm Bottle) 0 gm TOP BID PRN PRN Reason: Rash Ondansetron HCl (Ondansetron 4 Mg/2 Ml Sdv) 4 mg IVPUSH Q4H PRN PRN Reason: Nausea/Vomiting Oxycodone/Acetaminophen (Acetaminophen/Oxycodone 325-5 Mg Tab) 1 tab PO Q4H PRN PRN Reason: Pain (moderate 4-6) Last Admin: 07/13/21 23:15 Dose: 1 tab Documented by: Oxycodone/Acetaminophen (Acetaminophen/Oxycodone 325-5 Mg Tab) 2 tab PO Q4H PRN PRN Reason: SEVERE PAIN Last Admin: 07/10/21 21:55 Dose: 2 tab Documented by: Pantoprazole Sodium (Pantoprazole 40 Mg Tab.Cr) 40 mg PO ACBREAKFAST [facility] Last Admin: 07/14/21 06:48 Dose: Not Given Documented by: Polyethylene Glycol (Polyethylene Glycol 3350 Powder 17 Gm Packet) 17 gm PO DAILY [facility] Last Admin: 07/14/21 08:40 Dose: 17 gm Documented by: Rosuvastatin Calcium (Rosuvastatin 10 Mg Tab) 5 mg PO BEDTIME [facility] Last Admin: 07/13/21 20:44 Dose: 5 mg Documented by: Senna/Docusate Sodium (Docusate Sodium/Sennosides 50-8.6 Mg Tab) 1 tab PO BID PRN PRN Reason: Constipation Last Admin: 07/13/21 17:05 Dose: 1 tab Documented by: Sodium Chloride (Sodium Chloride 0.9% 10 Ml Syringe) 10 ml FLUSH ASDIRECTED PRN PRN Reason: Keep Vein Open Last Admin: 07/14/21 08:32 Dose: 10 ml Documented by: Trazodone HCl (Trazodone 50 Mg Tab) 50 mg PO BEDTIME [facility] Last Admin: 07/13/21 20:44 Dose: 50 mg Documented by: Vancomycin HCl (Pharmacy To Dose - Vancomycin) 1 dose .XX ASDIRECTED [facility] Discontinued Medications Alprazolam (Alprazolam 0.5 Mg Tab) 0.5 mg PO DAILY PRN PRN Reason: Anxiety Ceftriaxone Sodium (Ceftriaxone 2 Gm Vial) 2 gm IVPUSH NOW [facility] Stop: 07/10/21 13:46 Last Admin: 07/10/21 14:30 Dose: 1 gm Documented by: Dextrose/Water (50% Dextrose In Water 50 Ml Syringe) 50 ml IVPUSH ASDIRECTED PRN PRN Reason: Hypoglycemia Flecainide Acetate (Flecainide 100 Mg Tab) 75 mg PO BID [facility] Last Admin: 07/10/21 22:24 Dose: Not Given Documented by: Glucagon (Glucagon,Human Recombinant 1 Mg Vial) 1 mg IM ASDIRECTED PRN PRN Reason: Hypoglycemia Heparin Sodium (Porcine) (Heparin Sodium 10 Units/Ml 5 Ml Syringe) Confirm Administered Dose 150 unit FLUSH .STK-MED ONE Stop: 07/12/21 14:37 Last Admin: 07/12/21 15:20 Dose: 150 unit Documented by: Heparin Sodium (Porcine) (Heparin Sodium 10 Units/Ml 5 Ml Syringe) 50 unit FLUSH Q8H [facility] Last Admin: 07/13/21 07:40 Dose: 50 unit Documented by: Heparin Sodium (Porcine) (Heparin Sodium 10 Units/Ml 5 Ml Syringe) Confirm Administered Dose 50 unit FLUSH .STK-MED ONE Stop: 07/13/21 22:09 Last Admin: 07/14/21 01:59 Dose: Not Given Documented by: Sodium Chloride (Normal Saline) 1,000 mls @ 500 mls/hr IV ASDIRECTED [facility] Last Admin: 07/10/21 13:10 Dose: 500 mls/hr Documented by: Sodium Chloride (Normal Saline) 1,000 mls @ 150 mls/hr IV ASDIRECTED [facility] Last Admin: 07/13/21 01:46 Dose: 150 mls/hr Documented by: Vancomycin HCl 2 gm/ Premix 400 mls @ 200 mls/hr IV ONETIME ONE Stop: 07/11/21 10:59 Last Admin: 07/11/21 10:12 Dose: 200 mls/hr Documented by: Vancomycin HCl (Vancomycin 1.5 Gm/300 Ml) 300 mls @ 200 mls/hr IV Q12H [facility] Last Admin: 07/12/21 09:37 Dose: 200 mls/hr Documented by: Insulin Human Lispro (Insulin Lispro 100 Unit/Ml 3 Ml Kwikpen) 7 unit SUBCUT TIDMEALS [facility] Last Admin: 07/11/21 08:38 Dose: 7 units Documented by: Insulin Human Lispro (Insulin Lispro 100 Unit/Ml 3 Ml Kwikpen) 10 unit SUBCUT O NETIME ONE Stop: 07/10/21 21:46 Last Admin: 07/10/21 21:45 Dose: 10 units Documented by: Insulin Human Lispro (Insulin Lispro 100 Unit/Ml 3 Ml Kwikpen) 10 unit SUBCUT ONETIME ONE Stop: 07/10/21 23:31 Last Admin: 07/10/21 23:35 Dose: 10 units Documented by: Iopamidol (Iopamidol 755 Mg/Ml 100 Ml Bottle) 100 ml IV . DIRECTED ONE Stop: 07/10/21 13:59 Last Admin: 07/10/21 14:51 Dose: 90 ml Documented by: Meloxicam (Meloxicam 15 Mg Tab) 15 mg PO DAILY [facility] Morphine Sulfate (Morphine 4 Mg/Ml Vial) 4 mg IVPUSH NOW STA Stop: 07/10/21 13:14 Last Admin: 07/10/21 13:16 Dose: 4 mg Documented by: Ondansetron HCl (Ondansetron 4 Mg/2 Ml Sdv) 4 mg IVPUSH NOW STA Stop: 07/10/21 13:46 Last Admin: 07/10/21 14:28 Dose: 4 mg Documented by: Simvastatin (Simvastatin 10 Mg Tab) 10 mg PO BEDTIME [facility] Last Admin: 07/10/21 21:48 Dose: 10 mg Documented by: - Exam General: Alert, Oriented HEENT: Pupils Equal Neck: Supple Lungs: Clear to Auscultation Cardiovascular: Regular Rate GI/Abdominal Exam: Normal Bowel Sounds - Patient Data Lab Results Last 24 hrs: Laboratory Results - last 24 hr 07/13/21 07/13/21 07/13/21 Range/Units 11:06 17:20 20:38 WBC (3.0-10.3) x10-3/uL RBC (3.60-5.20) x10(6)uL Hgb (11.4-15.5) g/dL Hct (34.2-48.2) % MCV (76.7-100.5) fL MCH (23.9-33.9) pg MCHC (31.9-34.8) g/dL RDW (12.3-16.5) % Plt Count (151-488) x10(3)uL MPV (7.1-12.4) fL Neut % (Auto) (30.8-76.2) % Lymph % (Auto) (18.4-52.1) % [place] % (Auto) (4.4-15.7) % Eos % (Auto) (0.6-8.1) % Baso % (Auto) (0.2-1.5) % Neut # (Auto) (1.5-6.3) x10-3/uL Lymph # (Auto) (1.0-4.4) x10-3/uL [place] # (Auto) (0.3-1.0) x10-3/uL Eos # (Auto) (0.0-0.8) x10-3/uL Baso # (Auto) (0.0-0.1) x10-3/uL Sodium (135-145) mmol/L Potassium (3.5-5.3) mmol/L Chloride (100-110) mmol/L Carbon Dioxide (21-32) mmol/L BUN (7-18) mg/dL Creatinine (0.55-1.02) mg/dL Est Cr Clr Drug Dosing mL/min Estimated GFR (MDRD) (>60) BUN/Creatinine Ratio (9-20) Glucose (80-116) mg/dL POC Glucose 260 H D 333 H 384 H (80-116) mg/dL Calcium (8.6-10.2) mg/dL C-Reactive Protein (0.5-0.9) mg/dL Vancomycin Trough (<0.8) ug/mL 07/14/21 07/14/21 07/14/21 Range/Units 05:37 08:00 08:00 WBC 5.2 (3.0-10.3) x10-3/uL RBC 3.12 L (3.60-5.20) x10(6)uL Hgb 9.1 L (11.4-15.5) g/dL Hct 28.2 L (34.2-48.2) % MCV 90.5 (76.7-100.5) fL MCH 29.2 (23.9-33.9) pg MCHC 32.3 (31.9-34.8) g/dL RDW 13.9 (12.3-16.5) % Plt Count 603 H (151-488) x10(3)uL MPV 6.8 L (7.1-12.4) fL Neut % (Auto) 60.4 (30.8-76.2) % Lymph % (Auto) 27.7 (18.4-52.1) % [place] % (Auto) 6.4 (4.4-15.7) % Eos % (Auto) 4.3 (0.6-8.1) % Baso % (Auto) 1.2 (0.2-1.5) % Neut # (Auto) 3.2 (1.5-6.3) x10-3/uL Lymph # (Auto) 1.4 (1.0-4.4) x10-3/uL [place] # (Auto) 0.3 (0.3-1.0) x10-3/uL Eos # (Auto) 0.2 (0.0-0.8) x10-3/uL Baso # (Auto) 0.1 (0.0-0.1) x10-3/uL Sodium (135-145) mmol/L Potassium (3.5-5.3) mmol/L Chloride (100-110) mmol/L Carbon Dioxide (21-32) mmol/L BUN (7-18) mg/dL Creatinine (0.55-1.02) mg/dL Est Cr Clr Drug Dosing mL/min Estimated GFR (MDRD) (>60) BUN/Creatinine Ratio (9-20) Glucose (80-116) mg/dL POC Glucose 207 H D (80-116) mg/dL Calcium (8.6-10.2) mg/dL C-Reactive Protein (0.5-0.9) mg/dL Vancomycin Trough 16.7 H (<0.8) ug/mL 07/14/21 07/14/21 Range/Units 08:00 08:00 WBC (3.0-10.3) x10-3/uL RBC (3.60-5.20) x10(6)uL Hgb (11.4-15.5) g/dL Hct (34.2-48.2) % MCV (76.7-100.5) fL MCH (23.9-33.9) pg MCHC (31.9-34.8) g/dL RDW (12.3-16.5) % Plt Count (151-488) x10(3)uL MPV (7.1-12.4) fL Neut % (Auto) (30.8-76.2) % Lymph % (Auto) (18.4-52.1) % [place] % (Auto) (4.4-15.7) % Eos % (Auto) (0.6-8.1) % Baso % (Auto) (0.2-1.5) % Neut # (Auto) (1.5-6.3) x10-3/uL Lymph # (Auto) (1.0-4.4) x10-3/uL [place] # (Auto) (0.3-1.0) x10-3/uL Eos # (Auto) (0.0-0.8) x10-3/uL Baso # (Auto) (0.0-0.1) x10-3/uL Sodium 139 (135-145) mmol/L Potassium 3.8 (3.5-5.3) mmol/L Chloride 103 (100-110) mmol/L Carbon Dioxide 32 (21-32) mmol/L BUN 7 (7-18) mg/dL Creatinine 0.7 (0.55-1.02) mg/dL Est Cr Clr Drug Dosing 71.03 mL/min Estimated GFR (MDRD) > 60 (>60) BUN/Creatinine Ratio 10.0 (9-20) Glucose 204 H (80-116) mg/dL POC Glucose (80-116) mg/dL Calcium 8.5 L (8.6-10.2) mg/dL C-Reactive Protein 8.6 H* (0.5-0.9) mg/dL Vancomycin Trough (<0.8) ug/mL Result Diagrams: 07/14/21 08:00 07/14/21 08:00 Magan Results Last 24 hrs: Microbiology 07/10/21 16:00 Aerobic Blood Culture - Preliminary Blood - Venous - Lab Draw NO GROWTH AFTER 3 DAYS Anaerobic Blood Culture - Preliminary NO GROWTH AFTER 3 DAYS 07/10/21 14:35 Aerobic Blood Culture - Preliminary Blood - Venous NO GROWTH AFTER 3 DAYS Anaerobic Blood Culture - Preliminary NO GROWTH AFTER 3 DAYS Sepsis Event Note - Evaluation Sepsis Screening Result: No Definite Risk - Focused Exam Vital Signs: Vital Signs Temp Pulse Pulse Resp BP BP Pulse Ox 07/14/21 08:33 87 127/74 07/14/21 05:51 97.3 F 89 18 135/70 96 07/14/21 00:00 97.1 F 82 19 128/83 98 - Problem List & Annotations (1) Prosthetic hip infection SNOMED Code(s): 115056946 Code(s): T84.59XA - INFECT/INFLM REACTION DUE TO OTH INTERNAL JOINT PROSTH, INIT; Z96.649 - PRESENCE OF UNSPECIFIED ARTIFICIAL HIP JOINT Status: Acute Current Visit: Yes Qualifiers: Encounter type: initial encounter Qualified Code(s): T84.59XA - Infection and inflammatory reaction due to other internal joint prosthesis, initial encounter; Z96.649 - Presence of unspecified artificial hip joint (2) History of total hip replacement SNOMED Code(s): 512555735285, 290752987237 Code(s): Z96.649 - PRESENCE OF UNSPECIFIED ARTIFICIAL HIP JOINT Status: Acute Current Visit: Yes Qualifiers: Laterality: right Qualified Code(s): Z96.641 - Presence of right artificial hip joint (3) Uncontrolled type 2 diabetes mellitus SNOMED Code(s): 758312522, 661316489 Code(s): E11.65 - TYPE 2 DIABETES MELLITUS WITH HYPERGLYCEMIA Status: Acute Current Visit: Yes Qualifiers: Glycemic state: with hyperglycemia Qualified Code(s): E11.65 - Type 2 diabetes mellitus with hyperglycemia (4) Obesity SNOMED Code(s): 058917497, 591217744 Code(s): E66.9 - OBESITY, UNSPECIFIED Status: Acute Current Visit: Yes Qualifiers: Obesity type: due to excess calories (5) Hypotension SNOMED Code(s): 28806323 Code(s): I95.9 - HYPOTENSION, UNSPECIFIED Status: Acute Current Visit: Yes (6) Anemia SNOMED Code(s): 500192138 Code(s): D64.9 - ANEMIA, UNSPECIFIED Status: Acute Current Visit: Yes (7) Cellulitis SNOMED Code(s): 181801566 Code(s): L03.90 - CELLULITIS, UNSPECIFIED Status: Acute Current Visit: Yes (8) Hyponatremia SNOMED Code(s): 91584517 Code(s): E87.1 - HYPO-OSMOLALITY AND HYPONATREMIA Status: Acute Current Visit: Yes (9) Afib SNOMED Code(s): 25067370 Code(s): I48.91 - UNSPECIFIED ATRIAL FIBRILLATION Status: Acute Current Visit: Yes (10) Constipated SNOMED Code(s): 73159498 Code(s): K59.00 - CONSTIPATION, UNSPECIFIED Status: Acute Current Visit: Yes - Problem List Review Problem List Initiated/Reviewed/Updated: Yes - My Orders Last 24 Hours: My Active Orders 07/13/21 08:00 metFORMIN [Glucophage] 1,000 mg PO WITHBREAKFAST 07/13/21 08:48 Communication Order [RC] DAILY 07/13/21 09:00 polyethylene glycoL 3350 [MiraLAX] 17 gm PO DAILY 07/13/21 10:45 Heparin Sodium [Heparin Lock Flush 10 Units/ML] 50 unit FLUSH ASDIRECTED PRN 07/13/21 18:00 metFORMIN [Glucophage] 500 mg PO WITHDINNER - Plan Plan:: Continue with current IV antibiotic therapy. I placed a call to the orthopedic surgeon, to see if he can take in full outpatient debridement and return here for further care. He will return the call .
--- NOTE | 2021-07-14 10:43 | CR ---
INDICATION: Central line insertion. CHEST: Findings were compared with 07/10/21 examination. Portable AP view of the chest revealed a central line extending from the right subclavian area with its tip appearing to at or within the right atrium. It could be retracted slightly for better positioning - 2.0 cm. No evidence of pneumothorax was identified. Overlying EKG leads are noted. The heart did not appear grossly enlarged. The aorta is only minimally tortuous. Fusion of the lower neck - cervical spine noted. No gross consolidating pneumonia or effusion was seen. Heavy markings present make it difficult to exclude areas of patchy bronchopneumonia. IMPRESSION: 1. Central line appears to be at or in the right atrium and could be retracted approximately 2.0 cm for better positioning. 2. Heavy markings, likely fibrotic in nature, make it difficult to exclude areas of patchy bronchopneumonia, especially on the right. 3. ASD aorta. 4. Probable pulmonary fibrosis. MTDD
[2021-07-14] MEDS: cefTRIAXone 1 GM Vial IVPUSH SCH (13:32)
[2021-07-14] MEDS: metFORMIN 500 MG Tab PO SCH (18:05)
[2021-07-14] MEDS: Enoxaparin 40 MG/0.4 ML Syringe SUBCUT SCH (21:43)
[2021-07-14] MEDS: Rosuvastatin 10 MG Tab PO SCH (21:43)
[2021-07-14] MEDS: traZODone 50 MG Tab PO SCH (21:43)
[2021-07-14] MEDS: Latanoprost 0.005% Ophth Soln 2.5 ML Bottle EYEBOTH SCH (21:44)
[2021-07-14] MEDS: Insulin Glargine,Human Rec. Analog 100 Units/ML 3 ML Pen SUBCUT SCH (21:45)
[2021-07-14] MEDS: Acetaminophen/oxyCODONE 325-5 MG Tab PO PRN (22:30)
[2021-07-15] MEDS: Heparin Sodium 10 Units/ML 5 ML Syringe FLUSH SCH ×3 (06:31→08:57)
[2021-07-15] MEDS: Pantoprazole 40 MG Tab.CR PO SCH (06:31)
[2021-07-15] MEDS: Insulin Lispro 100 Unit/ML 3 ML KwikPen SUBCUT SCH ×2 (08:40→11:41)
[2021-07-15] MEDS: metFORMIN 1,000 MG Tab PO SCH (09:00)
[2021-07-15] MEDS: Diltiazem 120 MG Cap.CD PO SCH (09:04)
[2021-07-15] MEDS: Aspirin 325 MG Tab.EC PO SCH (09:04)
[2021-07-15] MEDS: Polyethylene Glycol 3350 Powder 17 GM Packet PO SCH (09:07)
[2021-07-15] MEDS: Gabapentin 300 MG Cap PO SCH (09:07)
[2021-07-15] MEDS: Multivitamin Tab PO SCH (09:07)
[2021-07-15] MEDS: Carboxymethylcellulose 0.5%/Glycerin 0.9% Ophth Soln 15 ML Bottle EYELF SCH (09:07)
[2021-07-15 09:08] VITALS: BP 142/60; PULSE 87
[2021-07-15] MEDS: Cholecalciferol (Vitamin D3) 25 MCG Tab PO SCH (09:08)
[2021-07-15] MEDS: Ascorbic Acid 500 MG Tab PO SCH (09:08)
[2021-07-15] MEDS: VANCOmycin 1.75 GM/350 ML 1.75 GM in Premix Bag 1 BAG IV SCH (09:08)
--- NOTE | 2021-07-15 12:57 | DISCH ---
DISCHARGE DATE: 07/15/2021 REASON FOR ADMISSION: Cellulitis, right hip. DISCHARGE DIAGNOSIS: Hip prosthesis infection. SECOND DIAGNOSES: 1. Obesity. 2. Status post right hip total hip arthroplasty. 3. Type 2 diabetes. 4. Atrial fibrillation. CONSULTATIONS: None. BRIEF HISTORY: A 65-year-old was brought in with pain, right hip and drainage, was found to have high white cell count, admitted for IV antibiotics. Diagnosis of hip infection was entertained the next day due to copious amounts of purulent drainage. Efforts to transfer to [facility] were initially fruitless because of lack of bed availability, but as of this morning, a bed has been opened up and she will be transferred by ambulance for possible surgery this afternoon. I spent more than 35 minutes in the discharge of the patient. /[id number] MIREILLE/RHONDA
[2021-07-16] MEDS ORDERED: Non-Formulary Medication 1 Each (Dulaglutide [Trulicity] 3 MG/0.5 ML Pen.Injctr) SQ SCH (08:58)
== END 2021-07-15 13:15 | DRG 560 ==
LOC: FB.ED 12:04 → FB.MS 17:09
PROVIDERS: ADMIT Family Medicine; ATTEND Family Medicine
PROC: 30233N1 Transfusion of Nonautologous Red Blood Cells into Peripheral Vein, Percutaneous Approach (ICD-10-PCS; principal; 2021-07-10)
PROC: 02H633Z Insertion of Infusion Device into Right Atrium, Percutaneous Approach (ICD-10-PCS; 2021-07-10)
DX: L03.90 Cellulitis, unspecified (principal); T84.51XA Infection and inflammatory reaction due to internal right hip prosthesis, initial encounter; E87.1 Hypo-osmolality and hyponatremia; Z68.41 Body mass index [BMI] 40.0-44.9, adult; Z96.641 Presence of right artificial hip joint; I48.91 Unspecified atrial fibrillation; E11.21 Type 2 diabetes mellitus with diabetic nephropathy; I10 Essential (primary) hypertension; I95.9 Hypotension, unspecified; D64.9 Anemia, unspecified; E87.6 Hypokalemia; E66.9 Obesity, unspecified; E11.65 Type 2 diabetes mellitus with hyperglycemia; Z20.822 Contact with and (suspected) exposure to COVID-19; K59.00 Constipation, unspecified; Z88.0 Allergy status to penicillin; Z79.4 Long term (current) use of insulin; Z79.82 Long term (current) use of aspirin; Z79.899 Other long term (current) drug therapy; Z87.891 Personal history of nicotine dependence
CPT/HCPCS: 36410; 36415; 36430; 71045; 71275; 73502-RT; 80048; 80053; 80202; 81001; 82947; 83605; 85025; 85379; 86140; 86850; 86900; 86901; 86920; 86922; 87040; 87804; 87804-59; 93005; 93971-RT; 94150; 96374; 96375; 99285-25; A9270-GY; J0696; J1642; J1650; J1815; J1815-GY; J2270; J2405; J3370; J7030; P9016; Q9967; U0002